=== PATIENT | female | born 1970 | race Caucasian/White ===

== ENCOUNTER 2017-05-23 16:55 | Inpatient (IN) | payer OTHER, SELFPAY ==
[2017-05-23] VITALS (7 sets, daily range): BP systolic 138–165; BP diastolic 67–95; PULSE 68–86; RESP 16–20; TEMP 36.8–36.9; O2SAT 96–100; BMI 32.5; BMI 29.7
--- NOTE | 2017-05-23 17:14 | RAD_ITS ---
STUDY: X-RAY CHEST REASON FOR EXAM: Female, 47 years old. Chest pain. TECHNIQUE: Single AP portable view of the chest. COMPARISON: None. FINDINGS: The lungs are clear and expanded. There is no demonstrated pleural abnormality. Normal size heart. Normal mediastinum and christopher. Normal visualized pulmonary arteries. Normal visualized aortic arch and descending thoracic aorta. Normal visualized thoracic spine. Normal visualized ribs, clavicles, and shoulders. There is no demonstrated abnormality of the visualized soft tissue structures of the upper abdomen. RAD/Chest 1 View (Portable) IMPRESSION: Normal x-ray examination of the chest. Electronically Signed: Shamar Perez DO at 17:38 EST Tel , Service support ,
--- NOTE | 2017-05-23 17:14 | EKG12_ITS ---
Test Reason : CHEST PAIN Blood Pressure : / mmHG Vent. Rate : 079 BPM Atrial Rate : 079 BPM P-R Int : 120 ms QRS Dur : 092 ms QT Int : 388 ms P-R-T Axes : 019 060 060 degrees QTc Int : 444 ms Normal sinus rhythm Normal ECG Confirmed by PAULINO SPRINGER, MARINO ([id number]), editor magazine RUDY FELIPE ([id number]) on 05/26/2017 2:12:52 PM Referred By: Confirmed By:MARINO BOB MD
--- NOTE | 2017-05-23 17:16 | ED.VISSUMM ---
- ER Visit Summary Date of Service: 05/23/17 Chief Complaint: Chest pain History of Present Illness: The patient is a [address] Nava. She reports approximate 11:00 at work today while she is undergoing light activity she had the onset of a left-sided chest pressure that lasted approximately 30 minutes. It was 10 out of 10 at worst. She reports her pain is 2 out of 10 currently. It was worsened by exertion relieved by rest. Made her short of breath and diaphoretic. She felt very lightheaded during this. She had no nausea or vomiting. She does report that she had a tightness in her throat then as well. She denies any chest pain or change in dyspnea exertion in the past month. Physical Examination: Vitals: Stable. Afebrile. General: Well-nourished and well-developed. Head: Normocephalic atraumatic. Neck: Supple, no lymphadenopathy. No JVD. Nontender. Cardiovascular: Regular rate and rhythm. No murmurs. Respiratory: No respiratory distress. Clear to auscultation bilaterally. Abdominal: Soft, nontender, nondistended, normal bowel sounds. No guarding, rebound, or peritoneal signs. Back: Nontender. Extremities: Nontender, no edema. Skin: Normal color, no rash. Neurologic: Alert and oriented ?3. Cranial nerves II through XII are intact. Normal strength and sensation. Psych: Normal affect. Test Results: EKG is sinus at 79 with no acute changes. Initial troponin 0.15. Chem-7 is marked for segment 152, chloride 116, BUN of 4. CBC is normal. Chest x-ray is normal. Emergency Department Course and Treatment: She was treated with aspirin. She is resting comfortably. Treatment Plan: Patient will be discussed with Dr. Regan he would like her placed on a heparin drip with bolus. She will be discussed with the hospitalist and admitted for further evaluation and treatment. Disposition: Needed in stable condition. Impression: 1. Chest pain. 2. Indeterminate troponin. 3. GRECIA score of 1. 4. Hypernatremia. 5. Critical care time 30 minutes. This note was generated with [employer] dictation software. It may contain incorrect words, spelling, and punctuation that were not noted in review of the chart prior to signing ED Disposition - Plan for ED Patient: Chief Complaint: Chest Pain Referrals: Emir Nava DO [Primary Care Provider] -
[2017-05-23] MEDS: 0.9% Normal Saline 1,000 ML 150 ML IV (17:31)
[2017-05-23] MEDS: Aspirin 81 MG TAB.CHEW 324 MG PO (17:32)
[2017-05-23 17:36] LABS: Absolute Lymphocyte Count 2.72 X10^3/ul (0.83-4.51); Absolute Neutrophil Count 6.2 X10^3/uL (2.0-7.7); Basophil# 0.05 X10^3/uL; Basophil% 0.5 % (0-1); Eosinophil# 0.05 X10^3/uL; Eosinophils% 0.5 % (0-5); Hematocrit 41.8 % (37-47); Lymphocyte # 2.72 X10^3/ul (4.0); Lymphocyte % 28.2 % (19-41); Mean Corp Hgb Conc 31.1 g/gl (32-36); Mean Corpuscular Hgb 24.6 pg (27.0-32.0); Mean Corpuscular Volume 79.2 fL (81-99); Mean Platelet Vol. 10.9 fl (6.2-12.0); Monocyte# 0.58 X10^3/uL; Neutrophil # 6.22 X10^3/uL (2.7-7.7); Neutrophil % 64.5 % (47-70); Platelet Count 328 K/mm3 (150-450); RBC Distribution Width SD 43.5 fl (35.1-43.9); Red Blood Count 5.28 M/mm3 (4.2-5.4); White Blood Count 9.7 K/mm3 (4.4-11.0)
[2017-05-23 17:38] LABS: POSITIVE COUNT NO; POSITIVE DIFFERENTIAL NO; POSITIVE MORPHOLOGY NO
[2017-05-23 18:05] LABS: BUN 4 mg/dL (7-18); BUN/Creat Ratio 6.8 RATIO (10-20); Calcium,Total 9.1 mg/dL (8.5-10.1); Creatinine, Serum 0.59 mg/dL (0.55-1.02); EST Glomerular Filtration Rate 116 mL/min (>60); Est Glom Filt Rate - Afr Amer 140 mL/min (>60); Estimated Creatinine Clearance 123.19 ml/min; Glucose 98 mg/dL (70-110); Potassium 3.9 mmol/L (3.5-5.1)
[2017-05-23] MEDS: HEPARIN/D5w 25,000 UNITS 25,000 UNITS/250 ML IV.SOLN. 14 UNITS IV (18:28)
[2017-05-23 18:39] LABS: International Normalized Ratio 1.1; Prothrombin Time (Protime)PT. 13.8 SECONDS (11.7-14.9)
[2017-05-23 18:40] LABS: Partial Thromboplast Time 30.9 Seconds (24.1-36.2)
[2017-05-23 19:04] LABS: Anion Gap 9 (5-15); Sodium Level 141 mmol/L (136-145)
[2017-05-23 19:08] LABS: Chloride 106 mmol/L (98-107)
--- NOTE | 2017-05-23 19:34 | ED.RN ---
PCU CHEST PAIN IMAMURA
[2017-05-23 21:18] LABS: Anion Gap 8 (5-15); BUN 4 mg/dL (7-18); BUN/Creat Ratio 7.8 RATIO (10-20); Calcium,Total 8.8 mg/dL (8.5-10.1); Chloride 108 mmol/L (98-107); Creatinine, Serum 0.51 mg/dL (0.55-1.02); EST Glomerular Filtration Rate 137 mL/min (>60); Est Glom Filt Rate - Afr Amer 165 mL/min (>60); Estimated Creatinine Clearance 142.51 ml/min; Glucose 96 mg/dL (70-110); Potassium 3.5 mmol/L (3.5-5.1); Sodium Level 142 mmol/L (136-145)
--- NOTE | 2017-05-23 21:28 | PCM.CONS.C ---
Problem List (1) NSTEMI (non-ST elevated myocardial infarction) Status: Acute (2) Chest pain Status: Acute Reason for Consult Date of Consultation: 05/23/17 History of Present Illness: The patient is a 47 year old white female with no past medical history other than a thyroid cyst who is referred for evaluation of chest pain and abnormal cardiac enzymes compatible with a non-ST segment elevation MT. The patient states that today, at work, she felt as the day went on she may have been having a panic attack . She had a variety of chest discomforts which felt like twinges as well as possibly pressure sensation. She seemed to think she was somewhat more short of breath and dyspneic. She noted discomfort in her neck area. She states she has been having discomfort in her left upper extremity for the last 2 weeks which she has attributed to musculoskeletal discomfort. She also noted that her heart rate appeared to be elevated at times. She had no nausea, emesis, but she may have had diaphoresis. She was evaluated by her employee nurse. She states originally she had a difficult time capturing her heart rate and blood pressure. After a period of time when she calmed down . She states that she was able to obtain a heart rate which she thought was elevated and a blood pressure which was reported as normal. She notes she was encouraged multiple times to present to the emergency department for evaluation. She chose not to do so. She did contact her primary physician office and then was recommended, based on the lateness of the day, to present to the emergency department to be evaluated with an ECG. In the emergency department she was evaluated. She was noted to have an indeterminate troponin I level. Her ECG demonstrated sinus rhythm with no acute ECG changes. She was treated with aspirin therapy. She was initially placed on IV anticoagulation therapy with IV heparin. She was placed in the PCU for further evaluation and care. She states overall she has felt better. She has had a repeat troponin I level which has increased. Her repeat ECG demonstrated continued sinus rhythm with no acute ECG changes. She states that she did travel recently to the [facility] for a hockey game. Otherwise she has had no prolonged periods of immobility. She also states she has been trying to eat healthier, exercise, and improve her lifestyle. She notes over the last year she has lost approximately 60 pounds. [] Past Medical History Allergies/Adverse Reactions: Allergies No Known Allergies Allergy (Verified 04/16/13 22:11) Home Medications: Ambulatory Orders Medication Instructions Recorded NK [NK] 05/23/17 Lives: Spouse/ Significant Other Smoking Status: Never smoker Alcohol: None Drugs: None Review of Systems - Review of Systems General: Denies: Fever, Night Sweats, Fatigue Cardiovascular: Reports: Chest Discomfort, Chest Discomfort at Rest, Chest Discomfort with Exertion, Shortness of Breath, Shortness of Breath at Rest, Shortness of Breath with Exertion, Palpitations. Denies: Orthopnea, PND, Peripheral Edema, Lightheadedness, Dizziness, Near Syncope, Syncope Respiratory: Reports: Shortness of Breath. Denies: Cough, Sputum Production, Hemoptysis Gastrointestinal: Denies: Hematemesis, Hematochezia, Melena Genitourinary: Denies: Dysuria, Hematuria Skin: Denies: Rash Subjectve: This is a 47-year-old healthy-appearing white female who appears resting comfortably at the moment in no acute distress. Objective: Vital Signs Temp Pulse Resp BP Pulse Ox 98.4 F 78 18 138/86 H 100 05/23/17 20:00 05/23/17 20:16 05/23/17 20:00 05/23/17 20:00 05/23/17 20:00 Oxygen Delivery Method Room Air Weight: 201 lb Body Mass Index (BMI) 29.7 General: Awake, Alert, Oriented x 3, Cooperative, No Acute Distress Neck: No JVD Lungs: Clear to auscultation Cardiovascular: Regular Rhythm, Normal S1, Normal S2 Vascular: No Carotid Bruits Abdomen: Bowel Sounds Present, Soft, Non Tender Extremities: No Cyanosis, No Clubbing, No edema Neurological: No Focal Motor or Sensory Deficit 05/23/17 20:32: Sodium 142, Potassium 3.5, Chloride 108 H, Carbon Dioxide 26.0, Anion Gap 8, BUN 4 L, Creatinine 0.51 L, Est GFR (MDRD) Af Amer 165, Est GFR (MDRD) Non-Af 137, BUN/Creatinine Ratio 7.8 L, Glucose 96, Calcium 8.8 05/23/17 20:32: Troponin I 0.21 H Rhythm: Sinus rhythm EKG: As noted above CXR: Preliminary evaluation: No acute cardiopulmonary disease process appreciated: Please see official report Assessment/Plan 1. Non-ST segment elevation MT At the present time the patient presents with symptoms and subsequent abnormal troponin I levels which have increased with no other etiology to explain them compatible with a non-ST segment elevation MT. She will continue to be monitored. She will have follow-up cardiac enzymes and ECGs. She will have a follow-up echocardiogram to assess her left ventricular wall motion and systolic function. She will need to be considered for further evaluation with diagnostic cardiac catheterization unless another etiology is found to explain her clinical course and objective findings. In the meantime she will be treated medically. This will include a combination of aspirin and antiplatelet agents, nitrates as needed, beta-blockers, lipid-lowering agents, and anticoagulant therapy. 2. Chest pain She does have chest pain. Her symptoms are mixed. Thus far the concerning finding is her symptoms and her troponin I levels and the possibility of underlying cardiovascular disease. However she will also need to be considered for other etiologies. She did recently travel there may be concerns of the possibility of thromboembolic disease such as DVT/PE. It is not unreasonable to obtain a d-dimer level. If this is abnormal then she can be screened for the possibility of pulmonary emboli which may result in her symptoms and abnormal laboratory studies with a chest CT scan. Otherwise, unless there is another etiology to explain her symptoms and findings, and she will need to be considered for further evaluation from a cardiovascular standpoint as noted above. Comment: The above was discussed and reviewed with patient and the [facility] staff and the [facility] emergency department staff. This note was generated with [employer] software. Every effort was made to ensure accuracy, however, computerized audio visual production specialist mistakes may persist.
--- NOTE | 2017-05-23 21:37 | CON.PCM_ITS ---
Problem List (1) NSTEMI (non-ST elevated myocardial infarction) Status: Acute (2) Chest pain Status: Acute Reason for Consult Date of Consultation: 05/23/17 History of Present Illness: The patient is a 47 year old white female with no past medical history other than a thyroid cyst who is referred for evaluation of chest pain and abnormal cardiac enzymes compatible with a non-ST segment elevation PR. The patient states that today, at work, she felt as the day went on she may have been having a panic attack . She had a variety of chest discomforts which felt like twinges as well as possibly pressure sensation. She seemed to think she was somewhat more short of breath and dyspneic. She noted discomfort in her neck area. She states she has been having discomfort in her left upper extremity for the last 2 weeks which she has attributed to musculoskeletal discomfort. She also noted that her heart rate appeared to be elevated at times. She had no nausea, emesis, but she may have had diaphoresis. She was evaluated by her employee nurse. She states originally she had a difficult time capturing her heart rate and blood pressure. After a period of time when she calmed down . She states that she was able to obtain a heart rate which she thought was elevated and a blood pressure which was reported as normal. She notes she was encouraged multiple times to present to the emergency department for evaluation. She chose not to do so. She did contact her primary physician office and then was recommended, based on the lateness of the day, to present to the emergency department to be evaluated with an ECG. In the emergency department she was evaluated. She was noted to have an indeterminate troponin I level. Her ECG demonstrated sinus rhythm with no acute ECG changes. She was treated with aspirin therapy. She was initially placed on IV anticoagulation therapy with IV heparin. She was placed in the PCU for further evaluation and care. She states overall she has felt better. She has had a repeat troponin I level which has increased. Her repeat ECG demonstrated continued sinus rhythm with no acute ECG changes. She states that she did travel recently to the [facility] for a hockey game. Otherwise she has had no prolonged periods of immobility. She also states she has been trying to eat healthier, exercise, and improve her lifestyle. She notes over the last year she has lost approximately 60 pounds. [] Past Medical History Allergies/Adverse Reactions: Allergies No Known Allergies Allergy (Verified 04/16/13 22:11) Home Medications: Ambulatory Orders Medication Instructions Recorded NK [NK] 05/23/17 Lives: Spouse/ Significant Other Smoking Status: Never smoker Alcohol: None Drugs: None Review of Systems - Review of Systems General: Denies: Fever, Night Sweats, Fatigue Cardiovascular: Reports: Chest Discomfort, Chest Discomfort at Rest, Chest Discomfort with Exertion, Shortness of Breath, Shortness of Breath at Rest, Shortness of Breath with Exertion, Palpitations. Denies: Orthopnea, PND, Peripheral Edema, Lightheadedness, Dizziness, Near Syncope, Syncope Respiratory: Reports: Shortness of Breath. Denies: Cough, Sputum Production, Hemoptysis Gastrointestinal: Denies: Hematemesis, Hematochezia, Melena Genitourinary: Denies: Dysuria, Hematuria Skin: Denies: Rash Subjectve: This is a 47-year-old healthy-appearing white female who appears resting comfortably at the moment in no acute distress. Objective: Vital Signs Temp Pulse Resp BP Pulse Ox 98.4 F 78 18 138/86 H 100 05/23/17 20:00 05/23/17 20:16 05/23/17 20:00 05/23/17 20:00 05/23/17 20:00 Oxygen Delivery Method Room Air Weight: 201 lb Body Mass Index (BMI) 29.7 General: Awake, Alert, Oriented x 3, Cooperative, No Acute Distress Neck: No JVD Lungs: Clear to auscultation Cardiovascular: Regular Rhythm, Normal S1, Normal S2 Vascular: No Carotid Bruits Abdomen: Bowel Sounds Present, Soft, Non Tender Extremities: No Cyanosis, No Clubbing, No edema Neurological: No Focal Motor or Sensory Deficit 05/23/17 20:32: Sodium 142, Potassium 3.5, Chloride 108 H, Carbon Dioxide 26.0, Anion Gap 8, BUN 4 L, Creatinine 0.51 L, Est GFR (MDRD) Af Amer 165, Est GFR ( MDRD) Non-Af 137, BUN/Creatinine Ratio 7.8 L, Glucose 96, Calcium 8.8 05/23/17 20:32: Troponin I 0.21 H Rhythm: Sinus rhythm EKG: As noted above CXR: Preliminary evaluation: No acute cardiopulmonary disease process appreciated: Please see official report Assessment/Plan 1. Non-ST segment elevation PR At the present time the patient presents with symptoms and subsequent abnormal troponin I levels which have increased with no other etiology to explain them compatible with a non-ST segment elevation PR. She will continue to be monitored. She will have follow-up cardiac enzymes and ECGs. She will have a follow-up echocardiogram to assess her left ventricular wall motion and systolic function. She will need to be considered for further evaluation with diagnostic cardiac catheterization unless another etiology is found to explain her clinical course and objective findings. In the meantime she will be treated medically. This will include a combination of aspirin and antiplatelet agents, nitrates as needed, beta-blockers, lipid- lowering agents, and anticoagulant therapy. 2. Chest pain She does have chest pain. Her symptoms are mixed. Thus far the concerning finding is her symptoms and her troponin I levels and the possibility of underlying cardiovascular disease. However she will also need to be considered for other etiologies. She did recently travel there may be concerns of the possibility of thromboembolic disease such as DVT/PE. It is not unreasonable to obtain a d-dimer level. If this is abnormal then she can be screened for the possibility of pulmonary emboli which may result in her symptoms and abnormal laboratory studies with a chest CT scan. Otherwise, unless there is another etiology to explain her symptoms and findings , and she will need to be considered for further evaluation from a cardiovascular standpoint as noted above. Comment: The above was discussed and reviewed with patient and the [facility] staff and the [facility] emergency department staff. This note was generated with [employer] software. Every effort was made to ensure accuracy, however, computerized conservation science officer mistakes may persist.
[2017-05-23 21:52] LABS: D-Dimer Quantitative (DVT/PE) < 0.27 FEU/ug/m (0.27-0.49)
--- NOTE | 2017-05-23 22:04 | PCM.HP.STD ---
Problem List (1) NSTEMI (non-ST elevated myocardial infarction) Status: Acute (2) Chest pain Status: Acute Qualifiers: Chest pain type: precordial pain Qualified Code(s): R07.2 - Precordial pain History of Present Illness Date of Admission: 05/23/17 Chief Complaint: Chest pain. Patient is a 47 years old female with no significant medical problems in the past, presented with chest pain. Chest pain is fairly typical for symptoms of angina with pressure like sensation at upper mid chest, diaphoresis, radiation to neck, dizziness, and shortness of breath. The pain was not exertional, but she states that she was under a lot of stress. Pain started around 11:00 AM, lasted for about 30 minutes, resolved spontaneously. Other than family history, she has no significant risk factors. She has been exercising regularly now, with no symptoms while doing her exercise. EKG was normal. Troponin was slightly elevated to 0.15. Past Medical History Allergies No Known Allergies Allergy (Verified 04/16/13 22:11) Home Medications: Ambulatory Orders Medication Instructions Recorded NK [NK] 05/23/17 Surgical History: no surgical history Lives: Spouse/ Significant Other Smoking Status: Never smoker Alcohol: None Drugs: None - *Family History Maternal History Items: Heart Disease - Her mother had coronary artery disease in her late 50's. Paternal History Items: Heart Disease - Her father had coronary artery disease in his 50's. Review of Systems Comment: ROS: In general: Patient has been in good health, denied of any constitutional symptoms, such as weight loss, or gain, fever, chills, or night sweats. Patient denied of any profound fatigue. HEENT: Unremarkable. Patient denied of any dizziness, chronic headache, blurred vision, double vision, dry mouth, or nasal congestion. CV/respiratory: See HPI. GI: Patient denied any abdominal pain, nausea, vomiting, diarrhea, constipation, melena, or hematochezia. : Patient denied any significant urinary symptoms. Neurology: Unremarkable. There is no history of seizure as an adult. Psychological: Unremarkable. ?. Endocrine: Unremarkable. Musculoskeletal: Unremarkable. VTE Information - Inpt Only VTE Present on Admission: No VTE Mechan Device Prophylaxis: None VTE Pharm Prophylaxis ordered?: Yes Patient Problems: Active and Suspected Problems NSTEMI (non-ST elevated myocardial infarction) (Acute) Chest pain (Acute) Objective: In general, patient is a well-nourished and developed adult. HEENT: Head is atraumatic, and normocephalic. Pupils are equal, round, and reactive to light and accommodations. Neck is supple. There is no lymphadenopathy, or thyromegaly. Oral mucosa is pink, and moist. There are no lesions. Heart: Auscultation is normal with regular rhythm and rate. There is no extra heart sounds, or murmurs. S1 and S2 are present. Point of maximal impulse is not displaced. Lungs: Lungs are clear to auscultation bilaterally. There is no wheezing, or crackles. Abdomen: Abdominal wall is non-tender, and non-distended. There is no palpable mass or organomegaly. Normoactive bowel sounds are present. Extremities: There is no cyanosis or clubbing. Peripheral pulses are palpable. There is no edema. Skin: There are no any skin discoloration or lesions. Neurological: CN II - XII are intact. Sensory and motor functions are grossly normal with no obvious deficit. Cerebellar functions are within normal range. Gait was not tested. - Physical Exam Vital Signs Temp Pulse Resp BP Pulse Ox 98.4 F 78 18 138/86 H 100 05/23/17 20:00 05/23/17 20:16 05/23/17 20:00 05/23/17 20:00 05/23/17 20:00 Oxygen Delivery Method Room Air Weight: 201 lb Body Mass Index (BMI) 29.7 Laboratory Tests Past 24 Hrs 05/23/17 05/23/17 20:32 20:32 Sodium 142 Potassium 3.5 Chloride 108 H Carbon Dioxide 26.0 Anion Gap 8 BUN 4 L Creatinine 0.51 L Estim Creat Clear Calc 142.51 Est GFR (MDRD) Af Amer 165 Est GFR (MDRD) Non-Af 137 BUN/Creatinine Ratio 7.8 L Glucose 96 Calcium 8.8 Troponin I 0.21 H Diagnostic Data Chest X-Ray 05/23/17 17:14 IMPRESSION: Normal x-ray examination of the chest. Electronically Signed: Shamar Perez DO at 17:38 EST Tel , Service support , Assessment/Plan Active and Suspected Problems NSTEMI (non-ST elevated myocardial infarction) (Acute) Chest pain (Acute) Patient is a 47 years old female with no significant medical problems in the past, presented with chest pain. Chest pain is fairly typical for symptoms of angina with pressure like sensation at upper mid chest, diaphoresis, radiation to neck, dizziness, and shortness of breath. The pain was not exertional, but she states that she was under a lot of stress. Pain started around 11:00 AM, lasted for about 30 minutes, resolved spontaneously. Other than family history, she has no significant risk factors. She has been exercising regularly now, with no symptoms while doing her exercise. EKG was normal. Troponin was slightly elevated to 0.15. #1 Elevated troponin, likely with NSTEMI. Continue to trend troponin. Cardiology consulted. Started on heparin drip. Aspirin given. #2 chest pain. See above. VTE prophylaxis: heparin GGT. GI prophylaxis: famotidine po. Patient is full code. Disposition: home in 2 to 3 days. Code Visit Inpatient E&M: [id number] Init Hosp L3
--- NOTE | 2017-05-23 22:14 | HP.PCM_ITS ---
Problem List (1) NSTEMI (non-ST elevated myocardial infarction) Status: Acute (2) Chest pain Status: Acute Qualifiers: Chest pain type: precordial pain Qualified Code(s): R07.2 - Precordial pain History of Present Illness Date of Admission: 05/23/17 Chief Complaint: Chest pain. Patient is a 47 years old female with no significant medical problems in the past, presented with chest pain. Chest pain is fairly typical for symptoms of angina with pressure like sensation at upper mid chest, diaphoresis , radiation to neck, dizziness, and shortness of breath. The pain was not exertional, but she states that she was under a lot of stress. Pain started around 11:00 AM, lasted for about 30 minutes, resolved spontaneously. Other than family history, she has no significant risk factors. She has been exercising regularly now, with no symptoms while doing her exercise. EKG was normal. Troponin was slightly elevated to 0.15. Past Medical History Allergies No Known Allergies Allergy (Verified 04/16/13 22:11) Home Medications: Ambulatory Orders Medication Instructions Recorded NK [NK] 05/23/17 Surgical History: no surgical history Lives: Spouse/ Significant Other Smoking Status: Never smoker Alcohol: None Drugs: None - *Family History Maternal History Items: Heart Disease - Her mother had coronary artery disease in her late 50's. Paternal History Items: Heart Disease - Her father had coronary artery disease in his 50' s. Review of Systems Comment: ROS: In general: Patient has been in good health, denied of any constitutional symptoms, such as weight loss, or gain, fever, chills, or night sweats. Patient denied of any profound fatigue. HEENT: Unremarkable. Patient denied of any dizziness, chronic headache, blurred vision, double vision, dry mouth, or nasal congestion. CV/respiratory: See HPI. GI: Patient denied any abdominal pain, nausea, vomiting, diarrhea, constipation, melena, or hematochezia. : Patient denied any significant urinary symptoms. Neurology: Unremarkable. There is no history of seizure as an adult. Psychological: Unremarkable. ?. Endocrine: Unremarkable. Musculoskeletal: Unremarkable. VTE Information - Inpt Only VTE Present on Admission: No VTE Mechan Device Prophylaxis: None VTE Pharm Prophylaxis ordered?: Yes Patient Problems: Active and Suspected Problems NSTEMI (non-ST elevated myocardial infarction) (Acute) Chest pain (Acute) Objective: In general, patient is a well-nourished and developed adult. HEENT: Head is atraumatic, and normocephalic. Pupils are equal, round, and reactive to light and accommodations. Neck is supple. There is no lymphadenopathy, or thyromegaly. Oral mucosa is pink, and moist. There are no lesions. Heart: Auscultation is normal with regular rhythm and rate. There is no extra heart sounds, or murmurs. S1 and S2 are present. Point of maximal impulse is not displaced. Lungs: Lungs are clear to auscultation bilaterally. There is no wheezing, or crackles. Abdomen: Abdominal wall is non-tender, and non-distended. There is no palpable mass or organomegaly. Normoactive bowel sounds are present. Extremities: There is no cyanosis or clubbing. Peripheral pulses are palpable. There is no edema. Skin: There are no any skin discoloration or lesions. Neurological: CN II - XII are intact. Sensory and motor functions are grossly normal with no obvious deficit. Cerebellar functions are within normal range. Gait was not tested. - Physical Exam Vital Signs Temp Pulse Resp BP Pulse Ox 98.4 F 78 18 138/86 H 100 05/23/17 20:00 05/23/17 20:16 05/23/17 20:00 05/23/17 20:00 05/23/17 20:00 Oxygen Delivery Method Room Air Weight: 201 lb Body Mass Index (BMI) 29.7 Laboratory Tests Past 24 Hrs 05/23/17 05/23/17 20:32 20:32 Sodium 142 Potassium 3.5 Chloride 108 H Carbon Dioxide 26.0 Anion Gap 8 BUN 4 L Creatinine 0.51 L Estim Creat Clear Calc 142.51 Est GFR (MDRD) Af Amer 165 Est GFR (MDRD) Non-Af 137 BUN/Creatinine Ratio 7.8 L Glucose 96 Calcium 8.8 Troponin I 0.21 H Diagnostic Data Chest X-Ray 05/23/17 17:14 IMPRESSION: Normal x-ray examination of the chest. Electronically Signed: Shamar Perez DO at 17:38 EST Tel , Service support , Assessment/Plan Active and Suspected Problems NSTEMI (non-ST elevated myocardial infarction) (Acute) Chest pain (Acute) Patient is a 47 years old female with no significant medical problems in the past, presented with chest pain. Chest pain is fairly typical for symptoms of angina with pressure like sensation at upper mid chest, diaphoresis , radiation to neck, dizziness, and shortness of breath. The pain was not exertional, but she states that she was under a lot of stress. Pain started around 11:00 AM, lasted for about 30 minutes, resolved spontaneously. Other than family history, she has no significant risk factors. She has been exercising regularly now, with no symptoms while doing her exercise. EKG was normal. Troponin was slightly elevated to 0.15. #1 Elevated troponin, likely with NSTEMI. Continue to trend troponin. Cardiology consulted. Started on heparin drip. Aspirin given. #2 chest pain. See above. VTE prophylaxis: heparin GGT. GI prophylaxis: famotidine po. Patient is full code. Disposition: home in 2 to 3 days. Code Visit Inpatient E&M: 45125 Init Hosp L3
[2017-05-23] MEDS: 0.45% Normal Saline 1,000 ML 100 ML IV (22:29)
[2017-05-23] MEDS: TICAGRELOR 90 MG TABLET 180 MG PO (22:31)
[2017-05-23] MEDS: Metoprolol Tartrate 25 MG Tablet PO (22:32)
[2017-05-23] MEDS: Famotidine 20 MG Tablet PO (22:32)
[2017-05-24] VITALS (16 sets, daily range): BP systolic 119–134; BP diastolic 68–80; PULSE 56–73; RESP 15–18; TEMP 36.7–36.9; O2SAT 95–100
[2017-05-24 01:44] LABS: Partial Thromboplast Time 171.7 Seconds (24.1-36.2)
--- NOTE | 2017-05-24 05:55 | EKG12_ITS ---
Test Reason : Blood Pressure : / mmHG Vent. Rate : 069 BPM Atrial Rate : 069 BPM P-R Int : 122 ms QRS Dur : 094 ms QT Int : 396 ms P-R-T Axes : 006 046 050 degrees QTc Int : 424 ms Normal sinus rhythm Normal ECG Confirmed by PAULINO SPRINGER, MARINO ([id number]), editor managing newspaper RUDY FELIPE ([id number]) on 05/26/2017 2:13:16 PM Referred By: Confirmed By:MARINO BOB MD
--- NOTE | 2017-05-24 05:55 | ECHOD_ITS ---
Reason For Study: Chest Pain Procedure This was a 2D Doppler, Color Flow transthoracic echocardiogram. The exam was of fair technical quality due to body habitus. Exam performed portable in patient room. Left Ventricle Normal LV size. Left ventricular systolic function is normal. The estimated ejection fraction is 65 %. Transmitral doppler flow suggestive of impaired relaxation of left ventricle. No regional wall motion abnormalities noted. Right Ventricle Normal RV size. Normal systolic function. Atria Normal left atrium. Normal right atrium. No doppler evidence for ASD. Mitral Valve There is no mitral annular calcification. Normal mitral valve. Trivial mitral valve insufficiency. Tricuspid Valve Normal tricuspid valve. Trivial tricuspid valve insufficiency. Right ventricular systolic pressure estimated to be 24 mmHg. Aortic Valve Trisinus/trileaflet aortic valve. Mild focal aortic valve thickening. Pulmonic Valve Normal pulmonic valve. Great Vessels Normal sized aortic root. Pericardium/Pleural No pericardial effusion. MMode/2D Measurements & Calculations LVIDd: 4.5 cm IVSd: 0.98 cm Ao root diam: 2.9 cm LVIDs: 2.7 cm LVPWd: 1.2 cm LA dimension: 3.2 cm FS: 39.6 % LAV(MOD-bp): 50.7 ml LA A4 area: 16.7 cm2 RA A4 area: 15.0 cm2 LAV(MOD-bp) Indexed: 24.5 ml/m2 LAV(MOD-sp2): 63.0 ml LAV(MOD-sp4): 42.5 ml Time Measurements MV dec time: 0.20 sec Doppler Measurements & Calculations MV E max chris: 66.8 cm/sec MV V2 max: 85.4 cm/sec MV P1/2t max chris: 84.8 cm/sec MV A max chris: 75.5 cm/sec MV max P.9 mmHg MV P1/2t: 58.3 msec MV E/A: 0.89 MV V2 mean: 47.1 cm/sec MV dec slope: 426.0 cm/sec2 MV mean P.0 mmHg MVA(P1/2t): 3.8 cm2 MV V2 VTI: 24.5 cm Ao V2 max: 148.3 cm/sec LV V1 max: 111.0 cm/sec PA V2 max: 93.4 cm/sec Ao max P.8 mmHg LV V1 max P.9 mmHg Ao V2 mean: 92.5 cm/sec LV V1 mean P.3 mmHg Ao mean P.9 mmHg LV V1 mean: 70.1 cm/sec Ao V2 VTI: 27.0 cm LV V1 VTI: 21.7 cm TR max chris: 230.2 cm/sec TR max P.2 mmHg Interpretation Summary Left ventricular systolic function is normal. The estimated ejection fraction is 65 %. Trivial mitral valve insufficiency. Trivial tricuspid valve insufficiency. Mild focal aortic valve thickening. Right ventricular systolic pressure estimated to be 24 mmHg. Transmitral doppler flow suggestive of impaired relaxation of left ventricle Ordering Physician: Hira Regan Referring Physician: Emir Nava Performed By: Maxim Grider RCS
[2017-05-24 06:52] LABS: Hematocrit 37.3 % (37-47); Hemoglobin 11.5 g/dl (12.0-15.0); Mean Corp Hgb Conc 30.8 g/gl (32-36); Mean Corpuscular Hgb 24.4 pg (27.0-32.0); Mean Corpuscular Volume 79.2 fL (81-99); Mean Platelet Vol. 10.6 fl (6.2-12.0); Platelet Count 284 K/mm3 (150-450); RBC Distribution Width SD 43.5 fl (35.1-43.9); Red Blood Count 4.71 M/mm3 (4.2-5.4); White Blood Count 6.1 K/mm3 (4.4-11.0)
[2017-05-24 06:53] LABS: International Normalized Ratio 1.2; Prothrombin Time (Protime)PT. 14.6 SECONDS (11.7-14.9)
[2017-05-24 06:54] LABS: Partial Thromboplast Time 43.9 Seconds (24.1-36.2)
[2017-05-24 06:56] LABS: Scan Indicated on CBC? Y/N NO
[2017-05-24 07:17] LABS: Anion Gap 10 (5-15); BUN 4 mg/dL (7-18); BUN/Creat Ratio 9.8 RATIO (10-20); Calcium,Total 8.6 mg/dL (8.5-10.1); Chloride 107 mmol/L (98-107); Cholesterol 151 mg/dL (200); Creatinine, Serum 0.41 mg/dL (0.55-1.02); EST Glomerular Filtration Rate 178 mL/min (>60); Est Glom Filt Rate - Afr Amer 215 mL/min (>60); Estimated Creatinine Clearance 177.27 ml/min; Glucose 84 mg/dL (70-110); High Density Lipoprotein 53 mg/dL; Potassium 3.4 mmol/L (3.5-5.1); Sodium Level 143 mmol/L (136-145); Triglycerides 80 mg/dL; Very Low Density Lipoprotein 16 mg/dL (5-40)
[2017-05-24] MEDS: 0.45% Normal Saline 1,000 ML 100 ML IV ×2 (08:58→16:30)
[2017-05-24] MEDS: Metoprolol Tartrate 25 MG Tablet PO (09:00)
[2017-05-24] MEDS: Famotidine 20 MG Tablet PO ×2 (09:00→21:31)
[2017-05-24] MEDS: Aspirin E.C. 81 MG Tablet PO (09:00)
[2017-05-24 10:08] LABS: Partial Thromboplast Time 50.6 Seconds (24.1-36.2)
--- NOTE | 2017-05-24 12:08 | PCM.PN.CARD ---
Subjectve: The patient states she had transient chest pain earlier this morning. She points to her upper sternal area. She stated it lasted for approximately 1 minute and then was gone. She states the best she can describe it is as a discomfort. She complained of no other associated symptoms. Objective: Vital Signs Temp Pulse Resp BP Pulse Ox 98.5 F 68 18 134/80 H 97 05/24/17 08:00 05/24/17 11:15 05/24/17 08:00 05/24/17 09:00 05/24/17 08:00 Oxygen Delivery Method Room Air Weight: 201 lb Body Mass Index (BMI) 29.7 Intake and Output for Last 24 Hours 05/22/17 05/23/17 05/24/17 23:59 23:59 23:59 Intake Total 263.9 / 263.9 1185.7 / 1185.7 Output Total 700 / 700 Balance 263.9 / 263.9 485.7 / 485.7 General: Awake, Alert, Oriented x 3, Cooperative, No Acute Distress Neck: No JVD Lungs: Clear to auscultation Cardiovascular: Regular Rhythm, Normal S1, Normal S2 Vascular: No Carotid Bruits Abdomen: Bowel Sounds Present, Soft, Non Tender Extremities: No Cyanosis, No Clubbing, No edema Neurological: No Focal Motor or Sensory Deficit 05/23/17 20:32: Sodium 142, Potassium 3.5, Chloride 108 H, Carbon Dioxide 26.0, Anion Gap 8, BUN 4 L, Creatinine 0.51 L, Est GFR (MDRD) Af Amer 165, Est GFR (MDRD) Non-Af 137, BUN/Creatinine Ratio 7.8 L, Glucose 96, Calcium 8.8 05/23/17 20:32: Troponin I 0.21 H 05/24/17 01:10: Troponin I 0.16 H 05/24/17 01:10: APTT 171.7 H* 05/24/17 05:36: WBC 6.1, RBC 4.71, Hgb 11.5 L, Hct 37.3, MCV 79.2 L, MCH 24.4 L, MCHC 30.8 L, RDW 15.0 H, RDW Differential 43.5, Plt Count 284, MPV 10.6 05/24/17 05:36: Sodium 143, Potassium 3.4 L, Chloride 107, Carbon Dioxide 26.0, Anion Gap 10, BUN 4 L, Creatinine 0.41 L, Est GFR (MDRD) Af Amer 215, Est GFR (MDRD) Non-Af 178, BUN/Creatinine Ratio 9.8 L, Glucose 84, Calcium 8.6, Troponin I 0.13 H, Triglycerides 80, Cholesterol 151, LDL Cholesterol 82, VLDL Cholesterol 16, HDL Cholesterol 53 05/24/17 05:36: PT 14.6, INR 1.2, APTT 43.9 H 05/24/17 09:19: APTT 50.6 H Rhythm: Sinus rhythm EKG: Sinus rhythm; no acute ECG changes ECHO: Pending Assessment/Plan 1. Non-ST segment elevation MT At the present time the patient presents with symptoms and subsequent abnormal troponin I levels which have increased with no other etiology to explain them compatible with a non-ST segment elevation MT. She did undergo evaluation with a d-dimer level. This was negative. Thus it appears less likely she has had thromboembolic disease to explain her symptoms and findings. She will continue to be monitored. She will have follow-up cardiac enzymes and ECGs. She will have a follow-up echocardiogram to assess her left ventricular wall motion and systolic function. She will need to be considered for further evaluation with diagnostic cardiac catheterization unless another etiology is found to explain her clinical course and objective findings. In the meantime she will be treated medically. This will include a combination of aspirin and antiplatelet agents, nitrates as needed, beta-blockers, lipid-lowering agents, and anticoagulant therapy. 2. Chest pain She does have chest pain. Her symptoms are mixed. Thus far the concerning finding is her symptoms and her troponin I levels and the possibility of underlying cardiovascular disease. However she will also need to be considered for other etiologies. Again, she underwent evaluation with a d-dimer level for the possibility of thromboembolic disease based on her recent travels. This appeared to be negative. There is also concern, if she does not have underlying classic atherosclerotic coronary artery disease, and there is no other explanation for her symptoms and objective findings, depending upon her future evaluation with respect her coronary anatomy and her left ventricular anatomy, whether she could have experienced atrial stress-induced cardiomyopathy. Comment: The above was discussed and reviewed with patient and the [facility] staff and the [facility] emergency department staff. This note was generated with [employer] software. Every effort was made to ensure accuracy, however, computerized assistant unit forester mistakes may persist.
--- NOTE | 2017-05-24 12:28 | PN_ITS ---
Patient Problems: Active and Suspected Problems NSTEMI (non-ST elevated myocardial infarction) (Acute) Chest pain (Acute) Subjective: Patient seen and examined. Denies chest pain currently. Denies dizziness, palpitations, shortness of breath. Denies history of chest pain or similar symptoms. She denies other complaints at this time. - Physical Exam General: Alert, Oriented x3, Cooperative, No apparent distress HEENT: Atraumatic Neck: Supple, No JVD, Negative Carotid Bruits Lungs: Clear to auscultation, Normal air movement Cardiovascular: Regular rate, Regular Rhythm, Normal S1, Normal S2, No murmurs Abdomen: Bowel Sounds Present, Soft, Non Tender Extremities: No clubbing, No cyanosis, No edema, Capillary Refill Less than 3 Seconds Skin: No rashes, No breakdown Musculoskeletal: No Tenderness to Palpation of Joints or Extremities Neurological: Cranial nerves II-XII grossly intact, Neuro grossly intact Psych/Mental Status: Normal Affect, Appropriate Vital Signs Temp Pulse Resp BP Pulse Ox 98.5 F 68 18 134/80 H 97 05/24/17 08:00 05/24/17 11:15 05/24/17 08:00 05/24/17 09:00 05/24/17 08:00 Oxygen Delivery Method Room Air Weight: 91.172 kg Body Mass Index (BMI) 29.7 Intake and Output for Last 24 Hours 05/22/17 05/23/17 05/24/17 23:59 23:59 23:59 Intake Total 263.9 / 263.9 1185.7 / 1185.7 Output Total 700 / 700 Balance 263.9 / 263.9 485.7 / 485.7 Laboratory Tests Past 24 Hrs 05/23/17 05/23/17 05/24/17 20:32 20:32 01:10 WBC RBC Hgb Hct MCV MCH MCHC RDW RDW Differential Plt Count MPV PT INR APTT Sodium 142 Potassium 3.5 Chloride 108 H Carbon Dioxide 26.0 Anion Gap 8 BUN 4 L Creatinine 0.51 L Estim Creat Clear Calc 142.51 Est GFR (MDRD) Af Amer 165 Est GFR (MDRD) Non-Af 137 BUN/Creatinine Ratio 7.8 L Glucose 96 Calcium 8.8 Troponin I 0.21 H 0.16 H Triglycerides Cholesterol LDL Cholesterol VLDL Cholesterol HDL Cholesterol 05/24/17 05/24/17 05/24/17 01:10 05:36 05:36 WBC 6.1 RBC 4.71 Hgb 11.5 L Hct 37.3 MCV 79.2 L MCH 24.4 L MCHC 30.8 L RDW 15.0 H RDW Differential 43.5 Plt Count 284 MPV 10.6 PT INR APTT 171.7 H* Sodium 143 Potassium 3.4 L Chloride 107 Carbon Dioxide 26.0 Anion Gap 10 BUN 4 L Creatinine 0.41 L Estim Creat Clear Calc 177.27 Est GFR (MDRD) Af Amer 215 Est GFR (MDRD) Non-Af 178 BUN/Creatinine Ratio 9.8 L Glucose 84 Calcium 8.6 Troponin I 0.13 H Triglycerides 80 Cholesterol 151 LDL Cholesterol 82 VLDL Cholesterol 16 HDL Cholesterol 53 05/24/17 05/24/17 05:36 09:19 WBC RBC Hgb Hct MCV MCH MCHC RDW RDW Differential Plt Count MPV PT 14.6 INR 1.2 APTT 43.9 H 50.6 H Sodium Potassium Chloride Carbon Dioxide Anion Gap BUN Creatinine Estim Creat Clear Calc Est GFR (MDRD) Af Amer Est GFR (MDRD) Non-Af BUN/Creatinine Ratio Glucose Calcium Troponin I Triglycerides Cholesterol LDL Cholesterol VLDL Cholesterol HDL Cholesterol Assessment/Plan Active and Suspected Problems NSTEMI (non-ST elevated myocardial infarction) (Acute) Chest pain (Acute) Patient is a 47-year-old female admitted 05/23/2017 due to chest pain. She has no other past medical history. 1. Chest pain-EKG without ST-T changes. Troponin elevated. Cardiology consulted. Patient denies further chest pain. No previous cardiac history or stress test/cardiac catheterization. Continue aspirin, statin, Brilinta, beta- leann. D-dimer normal. Chest x-ray unremarkable. Initial blood pressure on admission elevated which has since normalized. Echocardiogram pending. Possible cardiac catheterization on Friday. Continue as needed nitrate. Monitor telemetry. Repeat EKG with recurrence of chest pain. 2. Non-ST elevation RI-troponin 0.15, 0.21, 0.16, 0.13. Plan as noted above. 3. Hypokalemia, mild-replace orally. Monitor BMP. DVT prophylaxis-heparin gtt. This patient was seen by [facility] under the supervision of Dr. Almonte.
--- NOTE | 2017-05-24 12:41 | CASEMGMT ---
Face to Face with patient for initial transition planning/care coordination assessment. RN CM introduced self and role at [facility], pt voices understanding and consents to assessment at this time. Care providers, pharmacy, and demographics verified. See attached link. Advised pt to ask for CM if questions/concerns/needs arise, voices understanding. PLAN: Home with family.
[2017-05-24] MEDS: TICAGRELOR 90 MG TABLET PO ×2 (15:03→21:31)
[2017-05-24] MEDS: Metoprolol Tartrate 50 MG Tablet PO ×2 (15:03→21:33)
[2017-05-24] MEDS: HEPARIN/D5w 25,000 UNITS 25,000 UNITS/250 ML IV.SOLN. 12 UNITS IV (15:04)
--- NOTE | 2017-05-24 16:11 | EKG12_ITS ---
Test Reason : AM EKG Blood Pressure : / mmHG Vent. Rate : 061 BPM Atrial Rate : 061 BPM P-R Int : 156 ms QRS Dur : 094 ms QT Int : 448 ms P-R-T Axes : 035 057 060 degrees QTc Int : 450 ms Normal sinus rhythm Normal ECG When compared with ECG of 23-MAY-2017 17:04, MANUAL COMPARISON REQUIRED, DATA IS UNCONFIRMED Confirmed by JANES HOANG ([id number]), department editor RUDY FELIPE ([id number]) on 05/29/2017 1:53:01 PM Referred By: Confirmed By:JANES HOANG
[2017-05-24 17:17] LABS: Partial Thromboplast Time 65.7 Seconds (24.1-36.2)
--- NOTE | 2017-05-24 18:36 | NURSING ---
REVIEWED AND AGREED W/ Micky RAMOS'S CHARTING.
[2017-05-24] MEDS: Acetaminophen 325 MG Tablet 650 MG PO (19:34)
[2017-05-24] MEDS: Atorvastatin Calcium 80 MG Tablet PO (21:31)
[2017-05-24] MEDS: Zolpidem Tartrate 5 MG Tablet PO (21:32)
[2017-05-24 23:02] LABS: Partial Thromboplast Time 66.1 Seconds (24.1-36.2)
[2017-05-25] VITALS (21 sets, daily range): BP systolic 121–153; BP diastolic 63–80; PULSE 53–74; RESP 14–18; TEMP 36.6–37.1; O2SAT 95–100
[2017-05-25] MEDS: 0.45% Normal Saline 1,000 ML 100 ML IV ×2 (04:13→12:22)
--- NOTE | 2017-05-25 05:55 | EKG12_ITS ---
Test Reason : CP Blood Pressure : / mmHG Vent. Rate : 060 BPM Atrial Rate : 060 BPM P-R Int : 138 ms QRS Dur : 088 ms QT Int : 434 ms P-R-T Axes : 019 046 052 degrees QTc Int : 434 ms Normal sinus rhythm Normal ECG When compared with ECG of 24-MAY-2017 05:28, MANUAL COMPARISON REQUIRED, DATA IS UNCONFIRMED Confirmed by JANES HOANG ([id number]), editor farm journal RUDY FELPIE ([id number]) on 05/29/2017 1:55:26 PM Referred By: FABBY Confirmed By:JANES HOANG
[2017-05-25 06:30] LABS: Hematocrit 36.2 % (37-47); Hemoglobin 11.5 g/dl (12.0-15.0); Mean Corp Hgb Conc 31.8 g/gl (32-36); Mean Corpuscular Volume 78.7 fL (81-99); Mean Platelet Vol. 11.2 fl (6.2-12.0); Platelet Count 267 K/mm3 (150-450); RBC Distribution Width SD 42.3 fl (35.1-43.9); Scan Indicated on CBC? Y/N NO; White Blood Count 5.8 K/mm3 (4.4-11.0)
[2017-05-25 06:50] LABS: Partial Thromboplast Time 82.2 Seconds (24.1-36.2)
[2017-05-25 07:41] LABS: Anion Gap 11 (5-15); BUN 5 mg/dL (7-18); BUN/Creat Ratio 11.8 RATIO (10-20); Calcium,Total 8.6 mg/dL (8.5-10.1); Chloride 108 mmol/L (98-107); Creatinine, Serum 0.42 mg/dL (0.55-1.02); EST Glomerular Filtration Rate 171 mL/min (>60); Est Glom Filt Rate - Afr Amer 207 mL/min (>60); Estimated Creatinine Clearance 173.05 ml/min; Glucose 92 mg/dL (70-110); Potassium 3.8 mmol/L (3.5-5.1); Sodium Level 140 mmol/L (136-145)
[2017-05-25] MEDS: Famotidine 20 MG Tablet PO ×2 (08:58→23:01)
[2017-05-25] MEDS: Aspirin E.C. 81 MG Tablet PO (08:58)
[2017-05-25] MEDS: TICAGRELOR 90 MG TABLET PO (08:58)
[2017-05-25] MEDS: Metoprolol Tartrate 50 MG Tablet PO (08:58)
[2017-05-25] MEDS: HEPARIN/D5w 25,000 UNITS 25,000 UNITS/250 ML IV.SOLN. 12 UNITS IV (10:43)
--- NOTE | 2017-05-25 12:42 | PCM.PN.CARD ---
Subjectve: The patient is awake and alert. She has complained of intermittent waxing and waning chest discomfort. She states she did receive additional therapy with nitrates which did help. At the moment she appears to be resting comfortably. Objective: Vital Signs Temp Pulse Resp BP Pulse Ox 98.6 F 62 18 140/76 H 98 05/25/17 12:27 05/25/17 12:27 05/25/17 12:27 05/25/17 12:27 05/25/17 12:27 Oxygen Delivery Method Room Air Weight: 201 lb Body Mass Index (BMI) 29.7 Intake and Output for Last 24 Hours 05/23/17 05/24/17 05/25/17 23:59 23:59 23:59 Intake Total 263.9 / 263.9 2325.7 / 2325.7 3154 / 3154 Output Total 700 / 700 Balance 263.9 / 263.9 1625.7 / 1625.7 3154 / 3154 General: Awake, Alert, Oriented x 3, Cooperative, No Acute Distress Neck: No JVD Lungs: Clear to auscultation Cardiovascular: Regular Rhythm, Normal S1, Normal S2 Vascular: No Carotid Bruits, Normal Femoral Pulses, Normal Radial Pulses Abdomen: Bowel Sounds Present, Soft, Non Tender Extremities: No Cyanosis, No Clubbing, No edema Neurological: No Focal Motor or Sensory Deficit 05/24/17 16:40: APTT 65.7 H 05/24/17 22:37: APTT 66.1 H 05/25/17 05:45: Sodium 140, Potassium 3.8, Chloride 108 H, Carbon Dioxide 21.0, Anion Gap 11, BUN 5 L, Creatinine 0.42 L, Est GFR (MDRD) Af Amer 207, Est GFR (MDRD) Non-Af 171, BUN/Creatinine Ratio 11.8, Glucose 92, Calcium 8.6 05/25/17 05:45: WBC 5.8, RBC 4.60, Hgb 11.5 L, Hct 36.2 L, MCV 78.7 L, MCH 25.0 L, MCHC 31.8 L, RDW 15.0 H, RDW Differential 42.3, Plt Count 267, MPV 11.2 05/25/17 05:45: APTT 82.2 H Rhythm: Sinus rhythm EKG: Sinus rhythm; no acute ECG changes ECHO: Ventricle normal with an LVEF of 65%; trivial MR/TR; mild focal aortic valve thickening; estimated RV systolic pressure 24 mmHg; decreased diastolic compliance Assessment/Plan 1. Non-ST segment elevation TN At the present time the patient presents with symptoms and subsequent abnormal troponin I levels which have increased with no other etiology to explain them compatible with a non-ST segment elevation TN. She did undergo evaluation with a d-dimer level. This was negative. Thus it appears less likely she has had thromboembolic disease to explain her symptoms and findings. She will continue to be monitored. Her cardiac enzymes have decreased. Follow-up echocardiogram was demonstrated no acute changes. Upon her symptoms, enzyme changes, etc. it has been recommended she undergo evaluation with diagnostic cardiac catheterization. The procedure and risks were discussed with her. She was agreeable to this approach. In the meantime she will be treated medically. This will include a combination of aspirin and antiplatelet agents, nitrates as needed, beta-blockers, lipid-lowering agents, and anticoagulant therapy. 2. Chest pain She does have chest pain. Her symptoms are mixed. Thus far the concerning finding is her symptoms and her troponin I levels and the possibility of underlying cardiovascular disease. However she will also need to be considered for other etiologies. Again, she underwent evaluation with a d-dimer level for the possibility of thromboembolic disease based on her recent travels. This appeared to be negative. There is also concern, if she does not have underlying classic atherosclerotic coronary artery disease, and there is no other explanation for her symptoms and objective findings, depending upon her future evaluation with respect her coronary anatomy and her left ventricular anatomy, whether she could have experienced atrial stress-induced cardiomyopathy. Based upon her echocardiographic images there does not appear to be the classic evidence at this time compatible with a stress-induced cardiomyopathy. Comment: The above was discussed and reviewed with patient and the [facility] staff. This note was generated with [employer] software. Every effort was made to ensure accuracy, however, computerized wireworker supervisor mistakes may persist.
--- NOTE | 2017-05-25 12:46 | PN.CARD_ITS ---
Subjectve: The patient is awake and alert. She has complained of intermittent waxing and waning chest discomfort. She states she did receive additional therapy with nitrates which did help. At the moment she appears to be resting comfortably. Objective: Vital Signs Temp Pulse Resp BP Pulse Ox 98.6 F 62 18 140/76 H 98 05/25/17 12:27 05/25/17 12:27 05/25/17 12:27 05/25/17 12:27 05/25/17 12:27 Oxygen Delivery Method Room Air Weight: 201 lb Body Mass Index (BMI) 29.7 Intake and Output for Last 24 Hours 05/23/17 05/24/17 05/25/17 23:59 23:59 23:59 Intake Total 263.9 / 263.9 2325.7 / 2325.7 3154 / 3154 Output Total 700 / 700 Balance 263.9 / 263.9 1625.7 / 1625.7 3154 / 3154 General: Awake, Alert, Oriented x 3, Cooperative, No Acute Distress Neck: No JVD Lungs: Clear to auscultation Cardiovascular: Regular Rhythm, Normal S1, Normal S2 Vascular: No Carotid Bruits, Normal Femoral Pulses, Normal Radial Pulses Abdomen: Bowel Sounds Present, Soft, Non Tender Extremities: No Cyanosis, No Clubbing, No edema Neurological: No Focal Motor or Sensory Deficit 05/24/17 16:40: APTT 65.7 H 05/24/17 22:37: APTT 66.1 H 05/25/17 05:45: Sodium 140, Potassium 3.8, Chloride 108 H, Carbon Dioxide 21.0, Anion Gap 11, BUN 5 L, Creatinine 0.42 L, Est GFR (MDRD) Af Amer 207, Est GFR ( MDRD) Non-Af 171, BUN/Creatinine Ratio 11.8, Glucose 92, Calcium 8.6 05/25/17 05:45: WBC 5.8, RBC 4.60, Hgb 11.5 L, Hct 36.2 L, MCV 78.7 L, MCH 25.0 L, MCHC 31.8 L, RDW 15.0 H, RDW Differential 42.3, Plt Count 267, MPV 11.2 05/25/17 05:45: APTT 82.2 H Rhythm: Sinus rhythm EKG: Sinus rhythm; no acute ECG changes ECHO: Ventricle normal with an LVEF of 65%; trivial MR/TR; mild focal aortic valve thickening; estimated RV systolic pressure 24 mmHg; decreased diastolic compliance Assessment/Plan 1. Non-ST segment elevation [place] At the present time the patient presents with symptoms and subsequent abnormal troponin I levels which have increased with no other etiology to explain them compatible with a non-ST segment elevation NJ. She did undergo evaluation with a d-dimer level. This was negative. Thus it appears less likely she has had thromboembolic disease to explain her symptoms and findings. She will continue to be monitored. Her cardiac enzymes have decreased. Follow- up echocardiogram was demonstrated no acute changes. Upon her symptoms, enzyme changes, etc. it has been recommended she undergo evaluation with diagnostic cardiac catheterization. The procedure and risks were discussed with her. She was agreeable to this approach. In the meantime she will be treated medically. This will include a combination of aspirin and antiplatelet agents, nitrates as needed, beta-blockers, lipid- lowering agents, and anticoagulant therapy. 2. Chest pain She does have chest pain. Her symptoms are mixed. Thus far the concerning finding is her symptoms and her troponin I levels and the possibility of underlying cardiovascular disease. However she will also need to be considered for other etiologies. Again, she underwent evaluation with a d-dimer level for the possibility of thromboembolic disease based on her recent travels. This appeared to be negative. There is also concern, if she does not have underlying classic atherosclerotic coronary artery disease, and there is no other explanation for her symptoms and objective findings, depending upon her future evaluation with respect her coronary anatomy and her left ventricular anatomy, whether she could have experienced atrial stress-induced cardiomyopathy. Based upon her echocardiographic images there does not appear to be the classic evidence at this time compatible with a stress-induced cardiomyopathy. Comment: The above was discussed and reviewed with patient and the [facility] staff. This note was generated with [employer] software. Every effort was made to ensure accuracy, however, computerized merchandise manager mistakes may persist.
--- NOTE | 2017-05-25 14:04 | PN_ITS ---
Patient Problems: Active and Suspected Problems NSTEMI (non-ST elevated myocardial infarction) (Acute) Chest pain (Acute) Subjective: Patient seen and examined. Ambulating in room. Denies further chest pain. Dr. Regan has discussed with patient possibly undergoing cardiac catheterization this afternoon. She denies questions or concerns. Denies other complaints at this time. - Physical Exam General: Alert, Oriented x3, Cooperative, No apparent distress HEENT: Atraumatic, PERRLA, EOMI, Normocephalic Neck: Supple, No JVD, Negative Carotid Bruits Lungs: Clear to auscultation, Normal air movement Cardiovascular: Regular rate, Regular Rhythm, Normal S1, Normal S2, No murmurs Abdomen: Bowel Sounds Present, Soft, Non Tender, Non-Distended Extremities: No clubbing, No cyanosis, No edema, Capillary Refill Less than 3 Seconds Skin: No rashes, No breakdown Musculoskeletal: No Tenderness to Palpation of Joints or Extremities Neurological: Cranial nerves II-XII grossly intact, Neuro grossly intact Psych/Mental Status: Normal Affect, Appropriate Vital Signs Temp Pulse Resp BP Pulse Ox 98.6 F 62 18 140/76 H 98 05/25/17 12:27 05/25/17 12:27 05/25/17 12:27 05/25/17 12:27 05/25/17 12:27 Oxygen Delivery Method Room Air Weight: 91.172 kg Body Mass Index (BMI) 29.7 Intake and Output for Last 24 Hours 05/23/17 05/24/17 05/25/17 23:59 23:59 23:59 Intake Total 263.9 / 263.9 2325.7 / 2325.7 3154 / 3154 Output Total 700 / 700 Balance 263.9 / 263.9 1625.7 / 1625.7 3154 / 3154 Laboratory Tests Past 24 Hrs 05/24/17 05/24/17 05/24/17 05:36 16:40 22:37 WBC RBC Hgb Hct MCV MCH MCHC RDW RDW Differential Plt Count MPV APTT 65.7 H 66.1 H Sodium Potassium Chloride Carbon Dioxide Anion Gap BUN Creatinine Estim Creat Clear Calc Est GFR (MDRD) Af Amer Est GFR (MDRD) Non-Af BUN/Creatinine Ratio Glucose Calcium TSH 1.10 05/25/17 05/25/17 05/25/17 05:45 05:45 05:45 WBC 5.8 RBC 4.60 Hgb 11.5 L Hct 36.2 L MCV 78.7 L MCH 25.0 L MCHC 31.8 L RDW 15.0 H RDW Differential 42.3 Plt Count 267 MPV 11.2 APTT 82.2 H Sodium 140 Potassium 3.8 Chloride 108 H Carbon Dioxide 21.0 Anion Gap 11 BUN 5 L Creatinine 0.42 L Estim Creat Clear Calc 173.05 Est GFR (MDRD) Af Amer 207 Est GFR (MDRD) Non-Af 171 BUN/Creatinine Ratio 11.8 Glucose 92 Calcium 8.6 TSH Assessment/Plan Active and Suspected Problems NSTEMI (non-ST elevated myocardial infarction) (Acute) Chest pain (Acute) Patient is a 47-year-old female admitted 05/23/2017 due to chest pain. She has no other past medical history. 1. Chest pain-EKG without ST-T changes. Troponin elevated. Cardiology consulted. Patient did complain of a single episode of chest pain last evening. Denies further episodes since that time. No previous cardiac history or stress test/cardiac catheterization. Continue aspirin, statin, Brilinta, beta- leann. D-dimer normal. Chest x-ray unremarkable. Initial blood pressure on admission elevated which has since normalized. Echocardiogram shows an estimated ejection fraction of 65%. Patient may undergo cardiac catheterization later this afternoon or tomorrow. Continue as needed nitrate. Monitor telemetry. Repeat EKG with recurrence of chest pain. 2. Non-ST elevation PR-troponin 0.15, 0.21, 0.16, 0.13. Plan as noted above. 3. Hypokalemia, mild-Resolved. Monitor BMP. 4. Anxiety-untreated. Will discuss with patient outpatient therapy options. DVT prophylaxis-heparin gtt. This patient was seen by [facility] under the supervision of Dr. Almonte.
--- NOTE | 2017-05-25 17:09 | PCM.DC ---
- Discharge Diagnoses Current Active Problems: Current Active and Chronic Problems NSTEMI (non-ST elevated myocardial infarction) (Acute) Chest pain (Acute) You will use the following diet at home:: Cardiac - low fat, low salt Your food should be the consistency of: Regular Your liquids should be the consistency of: Regular/Thin Discharge Activity: Return to Normal Activity May shower in (days): 1 May resume sexual activity in: 10-14 days Weight Bearing Status: Full weight bearing Lifting Restrictions: 5-10 pounds for the next 2 weeks Call your doctor if your incision/area has: Continuous Slow Oozing, Sudden Increased Bleeding, Increased Pain/ Swelling, Increased Redness, Foul Smelling Discharge, Swelling at the incision site Call your doctor if you observe: Fever of 101 or Higher, Shortness of breath, Dizziness, Fainting spells, Swelling in the ankles, Chest pain Additional Instructions: You may remove the dressing in 1 day. You may shower in 1 day. No sex for 10-14 days. Do not lift more than 10 pounds until seen in the cardiolgy office for a groin check in 1 week. I have given you a prescription for Trazodone to take at night as needed for insomnia. It is actually an older anti-depressant that we use in small doses at night because one of the biggest side effects is to make you sleepy. If you take it before Midnight you should not have any hangover the next day. It is not addictive. Keep working at lifestyle changes to help control your anxiety. Allergies/Adverse Reactions: Allergies No Known Allergies Allergy (Verified 04/16/13 22:11) Medications to take at Discharge Aspirin E.C. [Ecotrin] 81 mg PO DAILY@0800 tablet 05/25/17 Trazodone HCl [Desyrel] 50 mg PO QHS #30 tab 05/25/17 The following prescriptions were given: Trazodone HCl [Desyrel] 50 mg PO QHS #30 tab Primary Care Physician: Emir Nava DO [Primary Care Provider] - Please follow up with your Primary Care Physician in: 2 weeks Please Follow Up With: Hira Regan MD When: 1 week for a groin check Proposed Discharge Date: 05/25/17
--- NOTE | 2017-05-25 17:26 | CL.D_ITS ---
Patient Name: NICK MCCOLLUM Study Date: 05/25/2017 Performing: Hira Regan MD Ht: 69 inches 175 cm : 1970 Wt: 200.9 lbs 91 kg Age: 47 Gender: female BSA: 2.07 PROCEDURE(S) PERFORMED TH53-ZPP/COR/LV CLINICAL PROFILE AND INDICATIONS INDICATIONS: Acute Coronary Syndrome, Non-Q DE Angina Classification Anginal Classification w/in 2 Weeks: CCS III CAD Presentations: Non-STEMI. CONCLUSIONS Normal Left Ventricular End Diastolic Pressure Normal LV size, wall motion,and systolic function LVEF: by LV gram 65 % Normal coronary arteries RECOMMENDATIONS Risk factor modification Medical therapy DESCRIPTION OF PROCEDURE The patient arrived to the procedure lab. The risks and benefits of the procedure as well as a full d escription of our services here and current unavailability of surgical backup were fully explained to the patient and/or their significant other prior to the catheterization. The Timeout was completed, verifying the correct patient and procedure. The patient's procedural site was prepped and draped in the usual fashion. Local anesthetic was given subcutaneously to right radial region with Lidocaine 2% . Using a modified Seldinger technique, arterial access was obtained via the right radial artery, a 6 Fr sheath was inserted. Left Coronary Artery selective angiography was performed in multiple views u sing a 5 Fr. 4.0 [place] catheter. Right Coronary Artery selective angiography was then performed in mu ltiple views using a 5 Fr. 3DRC (Chidi) catheter. Left Ventriculography was performed in GRIGGS proje ction using a 5 Fr. Pig[place] catheter. LV to AO pullback pressures were then recorded.The arterial she ath was pulled and a TR Band was applied for hemostasis- 18cc of air CORONARY ANGIOGRAPHY DOMINANCE: Right Dominant LEFT HEART ASSESSMENT Left Ventricular Ejection Fraction: by LV Gram 65 % Normal LV wall motion Normal Left Ventricular End Diastolic Pressure LVEDP: 9 mmHg LEFT MAIN: Angiographically normal LEFT ANTERIOR DECENDING ARTERY: Angiographically normal CIRCUMFLEX ARTERY: Angiographically normal RIGHT CORONARY ARTERY: Angiographically normal VALVE FINDINGS: Normal Aortic Valve function Normal Mitral Valve function AORTIC ROOT: Angiographically normal COMPLICATIONS No Complications PROCEDURE MEDICATIONS Versed 1 mg IV Fentanyl 50 mcg IV Versed 1 mg IV Fentanyl 50 mcg IV Oxygen: 2 L/min via nasal cannula SUMMARY OF HEMODYNAMIC DATA Time AIR REST ECG 16:23:30 AO 131/67 (97) SA 16:34:52 LV 137/1, 9 16:52:39 LV 139/0, 13 16:52:48 LV 146/0, 13 16:53:56 LVp 145/0, 16 16:54:02 AOp 149/76 (107) 16:54:07 Signed By Hira Regan MD On 05/25/2017 17:25:46 Hira Regan MD
--- NOTE | 2017-05-25 18:29 | NURSING ---
REVIEWED AND AGREED WNathanael BULLARD CHARTING.
[2017-05-25] MEDS: Acetaminophen 325 MG Tablet 650 MG PO (19:34)
[2017-05-25] MEDS: traZODone 50 MG Tablet PO (23:01)
[2017-05-25] MEDS: Metoprolol Tartrate 25 MG Tablet PO (23:02)
[2017-05-26] MEDS: Acetaminophen 325 MG Tablet 650 MG PO ×2 (02:52→09:25)
[2017-05-26 02:55] VITALS: BP 127/56; PULSE 59; RESP 16; TEMP 36.4; O2SAT 96
[2017-05-26 02:59] VITALS: PULSE 53
[2017-05-26 05:51] LABS: Hematocrit 35.5 % (37-47); Hemoglobin 11.3 g/dl (12.0-15.0)
[2017-05-26 06:08] LABS: Anion Gap 8 (5-15); BUN 7 mg/dL (7-18); BUN/Creat Ratio 15.8 RATIO (10-20); Calcium,Total 8.5 mg/dL (8.5-10.1); Chloride 107 mmol/L (98-107); Creatinine, Serum 0.44 mg/dL (0.55-1.02); EST Glomerular Filtration Rate 162 mL/min (>60); Est Glom Filt Rate - Afr Amer 196 mL/min (>60); Estimated Creatinine Clearance 165.19 ml/min; Glucose 85 mg/dL (70-110); Potassium 3.8 mmol/L (3.5-5.1); Sodium Level 140 mmol/L (136-145)
[2017-05-26 06:50] VITALS: PULSE 52
[2017-05-26 09:00] VITALS: BP 116/75; PULSE 64; RESP 16; TEMP 36.5; O2SAT 96
[2017-05-26] MEDS: Aspirin E.C. 81 MG Tablet PO (09:00)
[2017-05-26 09:25] VITALS: PULSE 64
[2017-05-26] MEDS: Metoprolol Tartrate 25 MG Tablet PO (09:25)
[2017-05-26] MEDS: Famotidine 20 MG Tablet PO (09:25)
[2017-05-26 10:51] VITALS: PULSE 56
--- NOTE | 2017-05-26 11:22 | PCM.DC.SUM ---
Discharge Date and Diagnosis Date of Admission: 05/23/17 Date of Discharge: 05/26/17 - Primary Discharge Diagnosis Active and Suspected Problems 1. Non-ST segment elevation [place]-demand ischemia 2. Mild hypokalemia-resolved 3. Anxiety, uncontrolled - Secondary Discharge Diagnosis Chronic Problems Anxiety (Chronic) Hospital Course and Treatment Imaging Results: Diagnostic Data Chest X-Ray 05/23/17 17:14 IMPRESSION: Normal x-ray examination of the chest. Electronically Signed: Shamar DO Ana at 17:38 EST Tel , Service support , Dr. Regan- Cardiology Operations: None Procedures: 2-D Echocardiogram, Cardiac catheterization Summary of Care Provided: Patient is a 47-year-old female admitted 05/23/2017 due to chest pain. She has no other past medical history. 1. Non-ST segment elevation GA-EKG without ST-T changes. Troponin elevated, peak of 0.21. Cardiology consulted. Patient underwent cardiac catheterization 05/25/2017 which showed normal coronary arteries. Echocardiogram showed an estimated ejection fraction of 65%. No arrhythmias noted on telemetry. D-dimer normal. Chest x-ray unremarkable. Patient will be discharged on 30 day event monitor and follow-up with Dr. Regan as outpatient. She will continue aspirin at discharge. 2. Hypokalemia, mild-Resolved. 4. Anxiety/insomnia-patient was started on trazodone 50 mg nightly. She was encouraged to practice lifestyle modifications to help control anxiety. This patient was seen by [facility] under the supervision of Dr. Almonte. General: Alert, Oriented x3, Cooperative, No apparent distress HEENT: Atraumatic, PERRLA, EOMI, Normocephalic Neck: Supple, No JVD, Negative Carotid Bruits Lungs: Clear to auscultation, Normal air movement Cardiovascular: Regular rate, Regular Rhythm, Normal S1, Normal S2, No murmurs Abdomen: Bowel Sounds Present, Soft, Non Tender, Non-Distended Extremities: No clubbing, No cyanosis, No edema, Capillary Refill Less than 3 Seconds Skin: No rashes, No breakdown Musculoskeletal: No Tenderness to Palpation of Joints or Extremities Neurological: Cranial nerves II-XII grossly intact, Neuro grossly intact Psych/Mental Status: Normal Affect, Appropriate Patient seen and examined prior to discharge. Physical assessment as noted above. Patient denies further chest pain. She will be discharged on 30 day event monitor, to follow-up with cardiology. Patient stable for discharge home. This patient was seen by [facility] under the supervision of Dr. Teague. Discharge Diet: Low fat/ Low Cholesterol Discharge Activity: Return to Normal Activity May shower in (days): 1 May resume sexual activity in: 10-14 days Weight Bearing Status: Full weight bearing Call your doctor if your incision/area has: Continuous Slow Oozing, Sudden Increased Bleeding, Increased Pain/ Swelling, Increased Redness, Foul Smelling Discharge, Swelling at the incision site Call your doctor if you observe: Fever of 101 or Higher, Shortness of breath, Dizziness, Fainting spells, Swelling in the ankles, Chest pain Home Medications: Medications to take at Discharge Aspirin E.C. [Ecotrin] 81 mg PO DAILY@0800 tablet 05/25/17 Trazodone HCl [Desyrel] 50 mg PO QHS #30 tab 05/25/17 Following Prescrptions Were Given to Patient: Trazodone HCl [Desyrel] 50 mg PO QHS #30 tab Primary Care Physician: Emir Nava DO [Primary Care Provider] - Please follow up with your Primary Care Physician in: 2 weeks Please Follow Up With: Hira Regan MD When: 1 week for a groin check Disposition: Home Minutes spent on discharge:: 35 Patient Condition:: Stable Meaningful Use Info Meaningful Use Diagnoses (Choose all that apply): None applicable
--- NOTE | 2017-05-26 11:32 | DS.PCM_ITS ---
Discharge Date and Diagnosis Date of Admission: 05/23/17 Date of Discharge: 05/26/17 - Primary Discharge Diagnosis Active and Suspected Problems 1. Non-ST segment elevation NC-demand ischemia 2. Mild hypokalemia-resolved 3. Anxiety, uncontrolled - Secondary Discharge Diagnosis Chronic Problems Anxiety (Chronic) Hospital Course and Treatment Imaging Results: Diagnostic Data Chest X-Ray 05/23/17 17:14 IMPRESSION: Normal x-ray examination of the chest. Electronically Signed: Shamar DO Ana at 17:38 EST Tel , Service support , Dr. Regan- Cardiology Operations: None Procedures: 2-D Echocardiogram, Cardiac catheterization Summary of Care Provided: Patient is a 47-year-old female admitted 05/23/2017 due to chest pain. She has no other past medical history. 1. Non-ST segment elevation NC-EKG without ST-T changes. Troponin elevated, peak of 0.21. Cardiology consulted. Patient underwent cardiac catheterization 05/25/2017 which showed normal coronary arteries. Echocardiogram showed an estimated ejection fraction of 65%. No arrhythmias noted on telemetry. D- dimer normal. Chest x-ray unremarkable. Patient will be discharged on 30 day event monitor and follow-up with Dr. Regan as outpatient. She will continue aspirin at discharge. 2. Hypokalemia, mild-Resolved. 4. Anxiety/insomnia-patient was started on trazodone 50 mg nightly. She was encouraged to practice lifestyle modifications to help control anxiety. This patient was seen by [facility] under the supervision of Dr. Almonte. General: Alert, Oriented x3, Cooperative, No apparent distress HEENT: Atraumatic, PERRLA, EOMI, Normocephalic Neck: Supple, No JVD, Negative Carotid Bruits Lungs: Clear to auscultation, Normal air movement Cardiovascular: Regular rate, Regular Rhythm, Normal S1, Normal S2, No murmurs Abdomen: Bowel Sounds Present, Soft, Non Tender, Non-Distended Extremities: No clubbing, No cyanosis, No edema, Capillary Refill Less than 3 Seconds Skin: No rashes, No breakdown Musculoskeletal: No Tenderness to Palpation of Joints or Extremities Neurological: Cranial nerves II-XII grossly intact, Neuro grossly intact Psych/Mental Status: Normal Affect, Appropriate Patient seen and examined prior to discharge. Physical assessment as noted above. Patient denies further chest pain. She will be discharged on 30 day event monitor, to follow-up with cardiology. Patient stable for discharge home. This patient was seen by [facility] under the supervision of Dr. Teague. Discharge Diet: Low fat/ Low Cholesterol Discharge Activity: Return to Normal Activity May shower in (days): 1 May resume sexual activity in: 10-14 days Weight Bearing Status: Full weight bearing Call your doctor if your incision/area has: Continuous Slow Oozing, Sudden Increased Bleeding, Increased Pain/ Swelling, Increased Redness, Foul Smelling Discharge, Swelling at the incision site Call your doctor if you observe: Fever of 101 or Higher, Shortness of breath, Dizziness, Fainting spells, Swelling in the ankles, Chest pain Home Medications: Medications to take at Discharge Aspirin E.C. [Ecotrin] 81 mg PO DAILY@0800 tablet 05/25/17 Trazodone HCl [Desyrel] 50 mg PO QHS #30 tab 05/25/17 Following Prescrptions Were Given to Patient: Trazodone HCl [Desyrel] 50 mg PO QHS #30 tab Primary Care Physician: Emir Nava DO [Primary Care Provider] - Please follow up with your Primary Care Physician in: 2 weeks Please Follow Up With: Hira Regan MD When: 1 week for a groin check Disposition: Home Minutes spent on discharge:: 35 Patient Condition:: Stable Meaningful Use Info Meaningful Use Diagnoses (Choose all that apply): None applicable
== END 2017-05-26 13:48 | disposition home or self-care (01) | DRG 282 ==
LOC: ED 17:30 → PCU 19:45
PROVIDERS: Internal Medicine; Internal Medicine Cardiovascular Disease; Nurse Practitioner Family; Admitting Provider Hospitalist; Emergency Provider Emergency Medicine; Family Provider Student in an Organized Health Care Education/Training Program; PCP Student in an Organized Health Care Education/Training Program; Visit Provider Internal Medicine
DX: I21.4 Non-ST elevation (NSTEMI) myocardial infarction (principal); E87.6 Hypokalemia; F41.9 Anxiety disorder, unspecified
CPT/HCPCS: 36415; 71045; 80048; 80061; 84443; 84484; 85014; 85018; 85025; 85027; 85379; 85610; 85730; 93005; 93306; 93458; 99152; 99153; 99283; J7030; Q9967; C1769; C1894

== ENCOUNTER → 2017-09-05 17:24 | Outpatient (CLI) | payer OTHER, SELFPAY ==
--- NOTE | 2017-09-05 15:30 | FLU_PTH ---
PATIENT: NICK MCCOLLUM [id number] AGE/SX: 54/F ROOM: RE09/05/[address]: Dr. Trinh Cesar MD : 1970 BED: DIS: SPEC #: [id number] RECD: 09/05/17 16:58 STATUS: PAWEL VALERIO #: [id number] FREIDA: 09/05/17 15:[address]: Trinh Cesar DEPT: CYTOLOGY RECD BY: Chidi Srinivasan Tissues: A - Thyroid gland, NOS B - Thyroid gland, NOS C - Thyroid gland, NOS D - Thyroid gland, NOS Procedures: Pap Stain (control) Special Stain Group II Surgery Specimen Level IV Cell Block Cytospin Fluid Cytology Other HEADER OPERATION: Ultrasound-guided fine needle aspiration left thyroid and right thyroid PRE-OP DIAGNOSIS: Thyroid nodules TISSUE SUBMITTED: A ? FNA left thyroid fluid for cytology, B ? FNA left thyroid slides (8), C - FNA right thyroid fluid for cytology, D ? FNA right thyroid slides (8) DIAGNOSIS CYTOLOGY A. Left thyroid nodule fluid, FNA (cytospin and cell block): Benign follicular cells and colloid noted. B. Left thyroid nodule, FNA (smears): Consistent with benign follicular nodule. See cytology study and comment. C. Right thyroid nodule fluid, FNA (cytospin and cell block): Benign follicular cells, macrophages and colloid noted.. D. Right thyroid nodule, FNA (smears): Consistent with benign follicular nodule. See cytology study and comment. SJ:ivelisse 09/09/17 COMMENT B. The findings may represent adenomatoid colloid nodule. D. The findings are suggestive of adenomatoid nodule with focal cystic changes. Correlation with clinical, radiologic findings and appropriate follow up are necessary. Please make reference to previous cytology ([id number]) right thyroid nodule and left thyroid nodule, FNA with diagnosis of consistent with colloid nodule. CYTOLOGY STUDY Slides are reviewed. B. The specimen is adequate for evaluation. The specimen consists of benign follicular cells and colloid. D. The specimen is adequate for evaluation. The specimen consists of benign follicular cells, macrophages and colloid. CYTOLOGY GROSS A - Received is 30 ml of steven cloudy fluid labeled with the patient's name and and designated per the requisition as left thyroid. Submitted for cytology preparation including cell block. B - Received are eight smears labeled with the patient's name and designated per the requisition as left thyroid. Submitted for staining. C - Received is 30 ml of steven cloudy fluid labeled with the patient's name and and designated per the requisition as right thyroid. Submitted for cytology preparation including cell block. D - Received are eight smears labeled with the patient's name and designated per the requisition as right thyroid. Submitted for staining. 09/08/17 TC:5 CPT: 77324 x2, 14445 x2, 41792 x2
== END ==
PROVIDERS: Visit Provider Surgery
DX: E04.1 Nontoxic single thyroid nodule (principal)
CPT/HCPCS: 88108; 88161; 88305; 88313

== ENCOUNTER 2018-05-28 19:44 | Observation (INO) | payer OTHER, SELFPAY ==
[2018-05-28 19:45] VITALS: BP 167/93; PULSE 79; RESP 17; TEMP 36.3; O2SAT 100; BMI 22.8
--- NOTE | 2018-05-28 19:57 | CT_ITS ---
STUDY: CT ABDOMEN AND PELVIS WITH CONTRAST REASON FOR EXAM: Female, 48 years old. Right-sided chest and abdominal pain. RADIATION DOSAGE (If Supplied By Facility): CTDIvol = ( 13.45 ) mGy, DLP = ( 739.58 ) mGycm TECHNIQUE: Transaxial images were obtained from the dome of the diaphragm to the symphysis pubis without oral contrast. 100ML ml of Isovue 300 contrast was administered. Sagittal and coronal images were reconstructed. Individualized dose optimization techniques were used for this CT. COMPARISON: None. FINDINGS: The visualized lung bases are unremarkable. The visualized portions of the heart are within normal limits. Interval hypodensities throughout the liver parenchyma are present with the largest within the right hepatic lobe measuring 1.8 cm likely consistent with multiple hepatic cysts given appearance though many are too small to characterize. There is apparent mild gallbladder wall thickening and pericholecystic fluid with a thin rim of hypodensity surrounding the gallbladder wall. Normal spleen. Normal pancreas. Normal bilateral adrenal glands. Normal right kidney. Normal left kidney. Normal visualized stomach. Normal small intestine. Normal colon. There is non-visualization of the appendix. Normal abdominal aorta. Normal inferior vena cava. Normal retroperitoneum. Bladder is largely contracted. Normal visualized uterus. Normal abdominal wall. There are diffuse degenerative changes of the visualized lumbar spine. CT/Abdomen/Pelvis W IV Cont ONLY IMPRESSION: 1. Findings consistent with mild gallbladder wall thickening and pericholecystic fluid with underlying inflammation not excluded, clinically correlate. Further evaluation may be obtained with dedicated right upper quadrant ultrasound as clinically warranted. 2. Multiple hypodensities throughout the liver parenchyma likely consistent with hepatic cysts given appearance though many too small to characterize. Otherwise no evidence of focal acute intra-abdominal process, obstruction or inflammation. Electronically Signed: Miki Tabares DO at 21:07 EST , Service support ,
--- NOTE | 2018-05-28 19:57 | ED.VISSUMM ---
- ER Visit Summary Date of Service: 05/28/18 Chief Complaint: Right-sided abdominal pain History of Present Illness: The patient is a 48 F who presents for right-sided abdominal pain that started last night. Today pain is radiating into the back and the right chest. Patient states the abdominal pain is spasming, and the pain in her back and chest is sharp. She took gas medication because she thought it might be intestinal gas. She denies fever, nausea, vomiting, diarrhea, other chest pain, shortness of breath. She denies any urinary symptoms. She states her menses have been irregular recently. She had a cardiac workup 1 year ago without any noted findings on catheterization. She takes aspirin daily. Patient also takes Wellbutrin. Denies alcohol or tobacco use. No history of abdominal surgery. Physical Examination: Vital signs: afebrile, hemodynamically stable, no hypoxia on room air General: well nourished, well developed, in no distress Skin: warm, dry, no rash, no pallor HEENT: normocephalic and atraumatic; PERRL, EOMI, moist mucous membranes Cardiovascular: regular rate and rhythm without murmurs, no peripheral edema, 2+ pulses all distal extremities Respiratory: No increased work of breathing, lungs are clear to auscultation bilaterally, no rales, rhonchi or wheezing Abdominal: Abdomen is soft, tender in the right mid and lower regions, no right upper quadrant tenderness, with normoactive bowel sounds, no guarding or rebound, no masses MSK: Moves all extremities, no deformities, normal strength Neuro: Awake and alert, oriented ?4. No facial droop, sensation and motor function intact and symmetric Test Results: Abnormal Lab Results 05/28/18 05/28/18 05/28/18 20:01 20:01 20:01 WBC 8.2 RBC 4.76 Hgb 12.1 Hct 38.8 MCV 81.5 MCH 25.4 L MCHC 31.2 L RDW 14.2 RDW Differential 42.3 Plt Count 285 MPV 10.6 Immature Gran % (Auto) 0.100 Neut % (Auto) 60.3 Lymph % (Auto) 33.2 [place] % (Auto) 5.3 Eos % (Auto) 0.6 Baso % (Auto) 0.5 Absolute Neuts (auto) 4.9 Absolute Lymphs (auto) 2.72 Total Counted Not Reportable Sodium 140 Potassium 3.3 L Chloride 106 Carbon Dioxide 25.0 Anion Gap 9 BUN 4 L Creatinine 0.54 L Estim Creat Clear Calc 133.15 Est GFR (MDRD) Af Amer 153 Est GFR (MDRD) Non-Af 127 BUN/Creatinine Ratio 7.3 L Glucose 98 Calcium 8.8 Total Bilirubin 0.30 AST 9 L ALT 14 Alkaline Phosphatase 70 Total Protein 7.3 Albumin 3.7 Globulin 3.6 Albumin/Globulin Ratio 1.0 Lipase 96 Urine Color Urine Clarity Urine pH Ur Specific Otho Urine Protein Urine Glucose (UA) Urine Ketones Urine Occult Blood Urine Nitrite Urine Bilirubin Urine Urobilinogen Ur Leukocyte Esterase Urine RBC Urine WBC Ur Squamous Epith Cells Urine Bacteria Urine Mucus Urine Test Negative 05/28/18 20:01 WBC RBC Hgb Hct MCV MCH MCHC RDW RDW Differential Plt Count MPV Immature Gran % (Auto) Neut % (Auto) Lymph % (Auto) [place] % (Auto) Eos % (Auto) Baso % (Auto) Absolute Neuts (auto) Absolute Lymphs (auto) Total Counted Sodium Potassium Chloride Carbon Dioxide Anion Gap BUN Creatinine Estim Creat Clear Calc Est GFR (MDRD) Af Amer Est GFR (MDRD) Non-Af BUN/Creatinine Ratio Glucose Calcium Total Bilirubin AST ALT Alkaline Phosphatase Total Protein Albumin Globulin Albumin/Globulin Ratio Lipase Urine Color Straw Urine Clarity Clear Urine pH 7.0 Ur Specific Otho 1.005 Urine Protein Negative Urine Glucose (UA) Normal Urine Ketones Negative Urine Occult Blood 50 H Urine Nitrite Negative Urine Bilirubin Negative Urine Urobilinogen Normal Ur Leukocyte Esterase Negative Urine RBC 0-5 SEEN Urine WBC 0 SEEN Ur Squamous Epith Cells 0 SEEN Urine Bacteria 0 SEEN Urine Mucus 0 SEEN Urine Test Clinical Impression(s) from Imaging Studies Abdomen/Pelvis CT 05/28/18 19:57 IMPRESSION: 1. Findings consistent with mild gallbladder wall thickening and pericholecystic fluid with underlying inflammation not excluded, clinically correlate. Further evaluation may be obtained with dedicated right upper quadrant ultrasound as clinically warranted. 2. Multiple hypodensities throughout the liver parenchyma likely consistent with hepatic cysts given appearance though many too small to characterize. Otherwise no evidence of focal acute intra-abdominal process, obstruction or inflammation. Electronically Signed: Miki Tabares DO at 21:07 EST , Service support , Gallbladder Ultrasound 05/28/18 21:16 IMPRESSION: 1. Multiple gallstones with positive Ford sign and trace pericholecystic fluid with upper limits normal of wall thickening concerning for acute cholecystitis in the appropriate clinical setting. 2. Multiple hepatic simple appearing cysts as above. Electronically Signed: Miki Tabares DO at 22:30 EST , Service support , Medications Given Discontinued Medications Sodium Chloride () 1,000 mls @ 1,000 mls/hr IV .Q1H ONE Stop: 05/28/18 20:55 Last Admin: 05/28/18 20:06 Dose: 1,000 mls/hr Ketorolac Tromethamine (Toradol) 15 mg IV X1 ONE Stop: 05/28/18 20:02 Last Admin: 05/28/18 20:07 Dose: 15 mg Ondansetron HCl (Zofran) 4 mg IV X1 ONE Stop: 05/28/18 19:57 Last Admin: 05/28/18 20:06 Dose: 4 mg Emergency Department Course and Treatment: Patient's right-sided chest and back pain can get more consistent with referred pain rather than primary chest pain. Patient was ordered IV fluids, Zofran and Toradol for pain. Labs were performed showing no leukocytosis, no transaminitis, and a normal lipase. negative. Because of patient's tenderness seems more mid to low abdomen, CT of the abdomen and pelvis was performed. It showed concerning findings for cholecystitis with recommended right upper quadrant ultrasound. Right upper quadrant ultrasound was performed and was consistent with acute cholecystitis. Patient's pain was controlled with the Toradol. Patient was discussed with Dr. Cesar and admitted for further management of acute cholecystitis. Treatment Plan: [] Disposition: [] Impression: acute cholecystitis This note was generated with Emit[employer] dictation software. It may contain incorrect words, spelling, and punctuation that were not noted in review of the chart prior to signing ED Disposition - Plan for ED Patient: Chief Complaint: Abd Pain Referrals: Emir Nava DO [Primary Care Provider] -
[2018-05-28] MEDS: Ondansetron 4 MG/2 ML Vial IV (20:06)
[2018-05-28] MEDS: 0.9% Normal Saline 1,000 ML 1000 ML IV (20:06)
[2018-05-28] MEDS: Ketorolac 15 MG/ML Vial IV (20:07)
[2018-05-28 20:09] LABS: Bacteria 0 SEEN /hpf (None Seen); Mucous, Urine 0 SEEN /hpf (<or=2+); Squamous Epithelial Cells - UA 0 SEEN /hpf (5-10); White Blood Cells 0 SEEN /hpf (0-5)
[2018-05-28 20:12] LABS: Color, Urine Straw (Yellow); Glucose, Dipstick Normal (Normal); Ketone-Dipstick Negative (Negative); Leukocyte Esterase-Dipstick Negative /ul (Negative); Nitrite-Dipstick Negative (Negative); Occult Blood-Urine 50 /ul (Negative); Protein-Dipstick Negative (Negative); Specific Gravity, Urine 1.005 (1.002-1.030); Urine Bilirubin Dipstick Negative (Negative); Urine Clarity Clear (Clear); Urine Urobilinogen Normal (Normal)
[2018-05-28 20:16] LABS: Internal QC Validated? YES +Cl - CLEAR BKGD; Pregnancy, Urine Negative Negative
[2018-05-28 20:18] LABS: Red Blood Cells-Urine 0-5 SEEN /hpf (0-5)
[2018-05-28 20:26] LABS: AST(SGOT) 9 U/L (15-37); Alanine Aminotransfer ALT/SGPT 14 U/L (13-56); Albumin, Serum 3.7 g/dL (3.2-5.0); Alkaline Phosphatase 70 U/L (45-117); Anion Gap 9 (5-15); BUN 4 mg/dL (7-18); BUN/Creat Ratio 7.3 RATIO (10-20); Calcium,Total 8.8 mg/dL (8.5-10.1); Chloride 106 mmol/L (98-107); Creatinine, Serum 0.54 mg/dL (0.55-1.02); EST Glomerular Filtration Rate 127 mL/min (>60); Est Glom Filt Rate - Afr Amer 153 mL/min (>60); Estimated Creatinine Clearance 133.15 ml/min; Globulin 3.6 g/dL (2.2-4.2); Glucose 98 mg/dL (74-106); Lipase 96 U/L (73-393); Potassium 3.3 mmol/L (3.5-5.1); Protein, Total 7.3 g/dL (6.4-8.2); Sodium Level 140 mmol/L (136-145)
[2018-05-28 20:33] LABS: Absolute Lymphocyte Count 2.72 X10^3/ul (0.83-4.51); Absolute Neutrophil Count 4.9 X10^3/uL (2.0-7.7); Basophil# 0.04 X10^3/uL; Basophil% 0.5 % (0-1); Eosinophil# 0.05 X10^3/uL; Eosinophils% 0.6 % (0-5); Hematocrit 38.8 % (37-47); Hemoglobin 12.1 g/dl (12.0-15.0); Lymphocyte # 2.72 X10^3/ul (4.0); Lymphocyte % 33.2 % (19-41); Mean Corp Hgb Conc 31.2 g/gl (32-36); Mean Corpuscular Hgb 25.4 pg (27.0-32.0); Mean Corpuscular Volume 81.5 fL (81-99); Mean Platelet Vol. 10.6 fl (6.2-12.0); Monocyte# 0.43 X10^3/uL; Monocyte% 5.3 % (0-10); Neutrophil # 4.94 X10^3/uL (2.7-7.7); Neutrophil % 60.3 % (47-70); Platelet Count 285 K/mm3 (150-450); RBC Distribution Width CV 14.2 % (11.6-14.6); RBC Distribution Width SD 42.3 fl (35.1-43.9); Red Blood Count 4.76 M/mm3 (4.2-5.4); White Blood Count 8.2 K/mm3 (4.4-11.0)
[2018-05-28 20:34] LABS: POSITIVE COUNT NO; POSITIVE DIFFERENTIAL NO; POSITIVE MORPHOLOGY NO
--- NOTE | 2018-05-28 21:16 | US_ITS ---
STUDY: ABDOMINAL ULTRASOUND - RIGHT UPPER QUADRANT REASON FOR VISIT: Female, 48 years old. Right-sided abdominal pain. TECHNIQUE: Ultrasound evaluation of the right upper quadrant was performed with real-time and static diop-scale imaging. TECHNICAL QUALITY: Adequate. COMPARISON: None. FINDINGS: Liver: The liver measures 17.0 cm. There is normal echogenicity of the liver. The bile ducts are within normal limits. There is hepatic color flow. The direction of portal flow is hepatopetal. There is no demonstrated mass lesion. Multiple hypoechoic cysts within the left and right hepatic lobe are present with the largest on the right measuring 2.1 x 2.1 x 1.9 cm and on the left measuring 1.8 x 1.6 x 1.5 cm. Gallbladder: Normal distended gallbladder. The gallbladder wall measures 3 mm. There is a positive sonographic Ford's sign. There is pericholecystic fluid. There are multiple echogenic structures within the gallbladder, consistent with multiple gallstones. Common Bile Duct (C.B.D.): The common bile duct measures 4 mm. Pancreas: Normal visualized pancreatic head and body with the tail incompletely seen. There is normal echogenicity of the pancreas. There is no demonstrated pancreatic mass or cyst. Right Kidney: Normal size of the right kidney. The right kidney measures 11.1 x 5.8 x 4.0 cm. Normal renal cortex. The right cortex measures 1.3 cm. There is no demonstrated renal mass or cyst. There is no right hydronephrosis. US/Gallbladder IMPRESSION: 1. Multiple gallstones with positive Ford sign and trace pericholecystic fluid with upper limits normal of wall thickening concerning for acute cholecystitis in the appropriate clinical setting. 2. Multiple hepatic simple appearing cysts as above. Electronically Signed: Miki Tabares DO at 22:30 EST , Service support ,
[2018-05-28 21:55] VITALS: PULSE 87; RESP 16; O2SAT 98
[2018-05-28 23:25] VITALS: PULSE 78; RESP 16; O2SAT 99
[2018-05-29 00:02] VITALS: BMI 22.5; BMI 22.6
[2018-05-29 00:40] VITALS: BP 137/80; PULSE 66; RESP 16; TEMP 36.3; O2SAT 98
[2018-05-29] MEDS: Lactated Ringers 1,000 ML 120 ML IV (00:56)
--- NOTE | 2018-05-29 04:55 | EKG12_ITS ---
Test Reason : AM EKG Blood Pressure : / mmHG Vent. Rate : 070 BPM Atrial Rate : 070 BPM P-R Int : 118 ms QRS Dur : 088 ms QT Int : 450 ms P-R-T Axes : 025 067 071 degrees QTc Int : 486 ms Normal sinus rhythm Prolonged QT Abnormal ECG Confirmed by PAULINO SPRINGER, MARINO ([id number]), rn pool RUDY FELIPE ([id number]) on 06/02/2018 3:55:06 PM Referred By: Trinh Cesar Confirmed By:MARINO BOB MD
[2018-05-29 05:16] VITALS: BP 127/75; PULSE 63; RESP 16; TEMP 36.5; O2SAT 99
[2018-05-29 07:26] LABS: Anion Gap 7 (5-15); BUN 4 mg/dL (7-18); BUN/Creat Ratio 7.4 RATIO (10-20); Calcium,Total 8.1 mg/dL (8.5-10.1); Chloride 109 mmol/L (98-107); Creatinine, Serum 0.54 mg/dL (0.55-1.02); EST Glomerular Filtration Rate 128 mL/min (>60); Est Glom Filt Rate - Afr Amer 155 mL/min (>60); Estimated Creatinine Clearance 133.15 ml/min; Glucose 78 mg/dL (74-106); Potassium 3.5 mmol/L (3.5-5.1); Sodium Level 141 mmol/L (136-145)
--- NOTE | 2018-05-29 07:27 | PCM.HP.BLA ---
History and Physical Date of Admission: 05/29/18 Chief Complaint: abdominal pain History of Present Illness: Otherwise healthy 48 y/o WF presents with sudden onset of abdominal pain beginning about two days ago. Pain increased in severity prompting visit to [facility] ED last night. Workup with CT scan and US revealed cholelithiasis and cholecystitis. Pain radiated to right shoulder area and back. Some nausea, denies emesis. Increased intraabdominal gas. denies fevers. No gallbldder disease knwon in family. PAST MEDICAL HISTORY ? Chronic headaches ? ? Routine gynecological examination ? ? sees Dr. Morris ? PAST SURGICAL HISTORY ? ANKLE ARTHROSCOPY/SURGERY ? 04/2013 ? left ankle fracture repair with plates/screws ? FNA WITH IMAGING ? 04/13/14 ? U/S FNA bilateral thyroid nodules ? HEART CATHETERIZATION ? 05/2017 ? TONSILLECTOMY HX Medications: Cholecalciferol, Vitamin D3, (VITAMIN D-3) 2,000 unit cap Take by mouth. buPROPion (WELLBUTRIN) 75 mg tablet Take 1 tablet by mouth once daily. aspirin, enteric coated (ASPIRIN, ENTERIC COATED) 81 mg EC tablet Take 81 mg by mouth once daily. Allergies: Has no known drug allergies Social history: TOB use denies Review of Systems: General - denies fevers Cardiovascular denies chest pain, denies history of heart attack, Pulmonary denies shortness of breath, denies coughing up blood Gastrointestinal as per HPI, denies blood in stools Neurological denies numbness/weakness of extremities, denies seizures denies history of stroke Genitourinary denies burning with urination, denies blood in urine Hematological denies spontaneous/prolonged bleeding Skin denies open non healing wounds Musculoskeletal denies arthritis Endocrine denies diabetes Psychological no mood changes Physical examination: Vital signs Temp 97.7F BP 116/72 RR 16 HR 68 General WD/WN WF in no apparent distress, alert and oriented, not septic appearing HEENT Normocephalic. EOM intact with sclera clear and no icterus noted. Neck is supple with no jugular venous distention noted. Trachea is midline. Lungs clear to auscultation. normal breath sounds No rales/rhonchi/wheezing noted. No labored breathing noted, such as retractions. No cough heard. Heart normal S1 and S2 auscultated. No rubs/clicks/murmurs noted. Normal size and location by auscultation. Abdomen soft but tender in right upper quadrant, no peritoneal signs noted. Normal bowel sounds Extremities no calf tenderness noted. No pitting edema noted. . Genitourinary/Rectal deferred Skin normal skin integrity. Neurological cranial nerves II-XII intact. Normal motor strength in arms and legs. No localized numbness detected. Psychological normal affect, patient is calm and appropriate Assessment/Plan: I have discussed the above with the patient. The patient is relatively comfortable at present. I have offered laparoscopic cholecystectomy, possible cholangiograms, to be done Friday. patient wants to postpone until later in the week due to job constraints. She feels relatively comfortable at present. I have counseled the patient as to the risks of the procedure, including but not limited to: infection, bleeding, injury to any blood vessels/nerves, scar tissue, injury to any intrabdominal organs, injury to kidney/ureters, injury to bowel/bladder, injury to the common bile duct/biliary tree, bile leakage, intraabdominal abscess/bleeding, hernias at incisional sites, wound infections, possible open procedure, complications of anesthesia, postoperative pneumonia/cardiac problems/blood clots etc. the patient understands. Will schedule for later next week as per patient's wishes. Will discharge on antibiotics and pain medications I have answered all questions to the patient?s satisfaction and the patient has no further questions.
--- NOTE | 2018-05-29 07:28 | PCM.DC.GS ---
Discharge Diet: - - low fat diet drink plenty of fluids Discharge Activity: Return to Normal Activity, - - avoid driving and taking narcotics Call your doctor if you observe: Fever of 101 or Higher, Uncontrolled pain Additional Instructions: Pain medication regimen: take acetaminophen 650 mg, then in three hours take 600 mg ibuprofen, then in 3 hours take acetaminophen 650 mg, and so on take narcotics for breakthrough pain Allergies/Adverse Reactions: Allergies No Known Allergies Allergy (Verified 05/28/18 19:44) Medications to take at Discharge bupropion HCl SR 150 mg tablet,12 hr sustained-release 150 mg PO QDAY 10/03/17 Amoxicillin/Potassium Clav [Augmentin 875-125 Tablet] 1 ea PO BID 7 Days #14 tab 05/29/18 Aspirin E.C. [Ecotrin] 81 mg PO DAILY@0800 05/29/18 Cholecalciferol (Vitamin D3) [Vitamin D3] 2,000 unit PO DAILY 05/29/18 Oxycodone [Oxyir] 5 mg PO Q12H PRN PRN 5 Days #10 tab 05/29/18 The following prescriptions were given: Oxycodone [Oxyir] 5 mg PO Q12H PRN PRN 5 Days #10 tab PRN Reason: Mod-Severe Pain (4-02/11) Amoxicillin/Potassium Clav [Augmentin 875-125 Tablet] 1 ea PO BID 7 Days #14 tab Primary Care Physician: Emir Nava DO [Primary Care Provider] - Test Results: Test results from this visit will be discussed in further detail at your follow-up appointment, if applicable. Please Follow Up With: Trinh Cesar MD - call When: Surgery scheduled on Jun 03, 2018, go to registration desk at 8:30
--- NOTE | 2018-05-29 07:32 | DCINST_ITS ---
Discharge Diet: - - low fat diet drink plenty of fluids Discharge Activity: Return to Normal Activity, - - avoid driving and taking narcotics Call your doctor if you observe: Fever of 101 or Higher, Uncontrolled pain Additional Instructions: Pain medication regimen: take acetaminophen 650 mg, then in three hours take 600 mg ibuprofen, then in 3 hours take acetaminophen 650 mg, and so on take narcotics for breakthrough pain Allergies/Adverse Reactions: Allergies No Known Allergies Allergy (Verified 05/28/18 19:44) Medications to take at Discharge bupropion HCl SR 150 mg tablet,12 hr sustained-release 150 mg PO QDAY 10/03/17 Amoxicillin/Potassium Clav [Augmentin 875-125 Tablet] 1 ea PO BID 7 Days #14 tab 05/29/18 Aspirin E.C. [Ecotrin] 81 mg PO DAILY@0800 05/29/18 Cholecalciferol (Vitamin D3) [Vitamin D3] 2,000 unit PO DAILY 05/29/18 Oxycodone [Oxyir] 5 mg PO Q12H PRN PRN 5 Days #10 tab 05/29/18 The following prescriptions were given: Oxycodone [Oxyir] 5 mg PO Q12H PRN PRN 5 Days #10 tab PRN Reason: Mod-Severe Pain (4-02/11) Amoxicillin/Potassium Clav [Augmentin 875-125 Tablet] 1 ea PO BID 7 Days #14 tab Primary Care Physician: Emir Nava DO [Primary Care Provider] - Test Results: Test results from this visit will be discussed in further detail at your follow- up appointment, if applicable. Please Follow Up With: Trinh Cesar MD - call When: Surgery scheduled on Jun 03, 2018, go to registration desk at 8:30
[2018-05-29 08:23] VITALS: BP 145/88; PULSE 74; RESP 18; TEMP 36.8; O2SAT 99
== END 2018-05-29 08:46 | disposition home or self-care (01) ==
LOC: ED 20:15 → MS3 05-29 08:14
PROVIDERS: Anesthesiology; Admitting Provider Surgery; Emergency Provider Emergency Medicine; Family Provider Student in an Organized Health Care Education/Training Program; PCP Student in an Organized Health Care Education/Training Program; Referring Provider Surgery; Visit Provider Surgery
DX: K80.00 Calculus of gallbladder with acute cholecystitis without obstruction (principal); Z79.82 Long term (current) use of aspirin
CPT/HCPCS: 36415; 74177; 76705; 80048; 80053; 81001; 81025; 83690; 85025; 93005; 96361; 96365; 96375; 99218; 99282; J7030; J7120; Q9967; A4216; G0378; J2405

== ENCOUNTER 2018-06-03 08:24 | Day surgery (SDC) | payer OTHER, SELFPAY ==
[2018-05-29 00:02] VITALS: BMI 22.5
--- NOTE | 2018-06-03 08:34 | EKG12_ITS ---
Test Reason : PRE OP Blood Pressure : / mmHG Vent. Rate : 065 BPM Atrial Rate : 065 BPM P-R Int : 104 ms QRS Dur : 092 ms QT Int : 422 ms P-R-T Axes : 013 062 068 degrees QTc Int : 438 ms Sinus rhythm with short [place] Otherwise normal ECG When compared with ECG of 29-MAY-2018 04:55, QT has shortened Confirmed by ÁLVARO SPRINGER, SCOTT ([id number]), video news editor RUDY FELIPE ([id number]) on 06/05/2018 3:49:25 PM Referred By: Trinh Cesar Confirmed By:SCOTT REA MD
[2018-06-03 08:46] VITALS: BP 120/89; PULSE 77; RESP 16; TEMP 37.3; O2SAT 100; BMI 22.7
[2018-06-03 08:48] LABS: Internal QC Validated? YES +Cl - CLEAR BKGD; Pregnancy, Urine Negative Negative
--- NOTE | 2018-06-03 09:49 | PCM.HP.BLA ---
History and Physical Date of Admission: 06/03/18 Chief Complaint: abdominal pain History of Present Illness: Otherwise healthy 48 y/o WF presents cholelithiasis last week. Here for laparoscopic cholecystectomy, possible cholangiograms PAST MEDICAL HISTORY ? Chronic headaches ? ? Routine gynecological examination ? ? sees Dr. Morris ? PAST SURGICAL HISTORY ? ANKLE ARTHROSCOPY/SURGERY ? 04/2013 ? left ankle fracture repair with plates/screws ? FNA WITH IMAGING ? 04/13/14 ? U/S FNA bilateral thyroid nodules ? HEART CATHETERIZATION ? 05/2017 ? TONSILLECTOMY HX Medications: Cholecalciferol, Vitamin D3, (VITAMIN D-3) 2,000 unit cap Take by mouth. buPROPion (WELLBUTRIN) 75 mg tablet Take 1 tablet by mouth once daily. aspirin, enteric coated (ASPIRIN, ENTERIC COATED) 81 mg EC tablet Take 81 mg by mouth once daily. Allergies: Has no known drug allergies Social history: TOB use denies Review of Systems: General - denies fevers Cardiovascular denies chest pain, denies history of heart attack, Pulmonary denies shortness of breath, denies coughing up blood Gastrointestinal as per HPI, denies blood in stools Neurological denies numbness/weakness of extremities, denies seizures denies history of stroke Genitourinary denies burning with urination, denies blood in urine Hematological denies spontaneous/prolonged bleeding Skin denies open non healing wounds Musculoskeletal denies arthritis Endocrine denies diabetes Psychological no mood changes Physical examination: Vital signs Temp 97.7F BP 116/72 RR 16 HR 68 General WD/WN WF in no apparent distress, alert and oriented, not septic appearing HEENT Normocephalic. EOM intact with sclera clear and no icterus noted. Neck is supple with no jugular venous distention noted. Trachea is midline. Lungs clear to auscultation. normal breath sounds No rales/rhonchi/wheezing noted. No labored breathing noted, such as retractions. No cough heard. Heart normal S1 and S2 auscultated. No rubs/clicks/murmurs noted. Normal size and location by auscultation. Abdomen soft but tender in right upper quadrant, no peritoneal signs noted. Normal bowel sounds Extremities no calf tenderness noted. No pitting edema noted. . Genitourinary/Rectal deferred Skin normal skin integrity. Neurological cranial nerves II-XII intact. Normal motor strength in arms and legs. No localized numbness detected. Psychological normal affect, patient is calm and appropriate Assessment/Plan: I have discussed the above with the patient. I have offered laparoscopic cholecystectomy, possible cholangiograms, I have counseled the patient as to the risks of the procedure, including but not limited to: infection, bleeding, injury to any blood vessels/nerves, scar tissue, injury to any intrabdominal organs, injury to kidney/ureters, injury to bowel/bladder, injury to the common bile duct/biliary tree, bile leakage, intraabdominal abscess/bleeding, hernias at incisional sites, wound infections, possible open procedure, complications of anesthesia, postoperative pneumonia/cardiac problems/blood clots etc. the patient understands. I have answered all questions to the patient?s satisfaction and the patient has no further questions.
--- NOTE | 2018-06-03 10:00 | GALL_PTH ---
PATIENT: NICK MCCOLLUM LOC: [facility] [place] U#:[id number] AGE/SX: 48/F ROOM: RE06/03/[address]: Dr. Trinh Cesar MD : [id number] BED: DIS: 06/03/2018 SPEC #: [id number] RECD: 06/03/18 14:09 STATUS: PAWEL VALERIO #: [id number] FREIDA: 06/03/18 10:[address]: Trinh Cesar DEPT: SURGICAL PATHOLOGY RECD BY: Ivan Mcbride ENTERED: 06/03/18 14:09 SP TYPE: MAGALY TAYLOR DR: Dr. Emir Nava DO Tissues: Gallbladder, NOS Procedures: Surgery Specimen Level III HEADER OPERATION: Laparoscopic cholecystectomy with IOC PRE-OP DIAGNOSIS: Cholelithiasis and cholecystitis TISSUE SUBMITTED: Gallbladder MICROSCOPIC DIAGNOSIS Gallbladder, cholecystectomy: Chronic cholecystitis. Cholelithiasis. CE:ivelisse 06/04/18 MICROSCOPIC DESCRIPTION Slides are reviewed. GROSS DESCRIPTION Received is one container labeled with the patient's name and designated gallbladder. The specimen consists of a previously opened gallbladder measuring 5 x 4 x 2 cm. The specimen container and open gallbladder lumen contains multiple yellow, chalky calculi and fragments of calculi ranging in size from <0.1 to 07 cm in greatest dimension. The gallbladder mucosa is bile-stained and free of mass lesions. The gallbladder wall averages 0.2 cm in thickness. Ticket Writer sections of the gallbladder and the cystic duct are submitted in one cassette. / AM:ivelisse 06/03/18 TC:3 CPT: 29462
--- NOTE | 2018-06-03 10:00 | RAD_ITS ---
STUDY: INTRAOPERATIVE CHOLANGIOGRAM. REASON FOR EXAM: Female, 48 years old. Laparoscopic cholecystectomy. FLUOROSCOPY TIME (if supplied): (3.5 seconds) minutes/seconds TECHNIQUE: Intraoperative cholangiogram was performed by the surgeon. COMPARISON: None. FINDINGS: The intrahepatic bile ducts are unremarkable. The common bile duct is not dilated. No intraluminal filling defect is seen. There is free flow of contrast into the duodenum. RAD/Cholangiogram/ O R,Initial IMPRESSION: Unremarkable intraoperative cholangiogram. Electronically Signed: Piotr Rendon MD at 14:07 EST , Service support ,
--- NOTE | 2018-06-03 10:53 | PCM.IMDPSTOP ---
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
--- NOTE | 2018-06-03 10:55 | PCM.DC.GB ---
Discharge Diet: No Restrictions - avoid carbonated beverages for a couple of days Discharge Activity: Return to Normal Activity, May not drive while taking narcotic pain medications. Lifting Restrictions: no lifting greater than 20 pounds for two weeks Call your doctor if your incision/area has: Continuous Slow Oozing, Foul Smelling Discharge Call your doctor if you observe: Fever of 101 or Higher Additional Dressing/Incision Instructions:: Leave dressings in place. May get wet in shower. Do not soak - no tub baths/swimming Additional Instructions: Recommended pain medications regimen: take 600 mg of ibuprofen, then in 3 hours take 650 mg acetaminophen, then in 3 hours take 600 mg ibuprofen, then in three hours take 650 mg acetaminophen, and so on for 2-3 days can take narcotics pain medications for breakthrough pain and at night to help you sleep Allergies/Adverse Reactions: Allergies No Known Allergies Allergy (Verified 06/01/18 11:36) Medications to take at Discharge bupropion HCl SR 150 mg tablet,12 hr sustained-release 150 mg PO QDAY 10/03/17 Amoxicillin/Potassium Clav [Augmentin 875-125 Tablet] 1 ea PO BID 7 Days #14 tab 05/29/18 Aspirin E.C. [Ecotrin] 81 mg PO DAILY@0800 05/29/18 Cholecalciferol (Vitamin D3) [Vitamin D3] 2,000 unit PO DAILY 05/29/18 Oxycodone [Oxyir] 5 mg PO Q8H PRN PRN 5 Days #15 tab 06/03/18 The following prescriptions were given: Oxycodone [Oxyir] 5 mg PO Q8H PRN PRN 5 Days #15 tab PRN Reason: Mod-Severe Pain (-02/11) Primary Care Physician: Emir Nava DO [Primary Care Provider] - Test Results: Test results from this visit will be discussed in further detail at your follow-up appointment, if applicable. Please Follow Up With: Trinh Cesar MD - call When: to be see in 10-14 days, please call for date and time, thank you
--- NOTE | 2018-06-03 10:58 | DCINST_ITS ---
Discharge Diet: No Restrictions - avoid carbonated beverages for a couple of days Discharge Activity: Return to Normal Activity, May not drive while taking narcotic pain medications. Lifting Restrictions: no lifting greater than 20 pounds for two weeks Call your doctor if your incision/area has: Continuous Slow Oozing, Foul Smelling Discharge Call your doctor if you observe: Fever of 101 or Higher Additional Dressing/Incision Instructions:: Leave dressings in place. May get wet in shower. Do not soak - no tub baths/swimming Additional Instructions: Recommended pain medications regimen: take 600 mg of ibuprofen, then in 3 hours take 650 mg acetaminophen, then in 3 hours take 600 mg ibuprofen, then in three hours take 650 mg acetaminophen, and so on for 2-3 days can take narcotics pain medications for breakthrough pain and at night to help you sleep Allergies/Adverse Reactions: Allergies No Known Allergies Allergy (Verified 06/01/18 11:36) Medications to take at Discharge bupropion HCl SR 150 mg tablet,12 hr sustained-release 150 mg PO QDAY 10/03/17 Amoxicillin/Potassium Clav [Augmentin 875-125 Tablet] 1 ea PO BID 7 Days #14 tab 05/29/18 Aspirin E.C. [Ecotrin] 81 mg PO DAILY@0800 05/29/18 Cholecalciferol (Vitamin D3) [Vitamin D3] 2,000 unit PO DAILY 05/29/18 Oxycodone [Oxyir] 5 mg PO Q8H PRN PRN 5 Days #15 tab 06/03/18 The following prescriptions were given: Oxycodone [Oxyir] 5 mg PO Q8H PRN PRN 5 Days #15 tab PRN Reason: Mod-Severe Pain (-02/11) Primary Care Physician: Emir Nava DO [Primary Care Provider] - Test Results: Test results from this visit will be discussed in further detail at your follow- up appointment, if applicable. Please Follow Up With: Trinh Cesar MD - call When: to be see in 10-14 days, please call for date and time, thank you
--- NOTE | 2018-06-03 12:04 | PCM.OPRPT ---
Report of Operation Date of Procedure: 06/03/18 Pre-Operative Diagnosis: cholelithiasis, cholecystitis Post-Operative Diagnosis: same Surgery/Procedure Performed:: laparoscopic cholecystectomy with cholangiograms Description of Surgical Findings:: intraoperative cholangiograms - normal, good flow into duodenum, chronic cholecystitis commercial credit analyst: NEW Randhawa Type of Anesthesia:: General Anesthesiologist: Praneeth Phillips Specimen's removed: gallbladder and contents Estimated Blood Loss (mL): < 5 ml Fluids Replaced: 1500 ml RL Description of Procedure: After informed consent was given, the patient was brought to the Operating Room. Appropriate time out protocol was followed. She was then placed in the supine position. The patient was then placed under general endotracheal anesthesia. The abdomen was then prepped with a sterile surgical skin preparation and sterile surgical drapes were placed. The infraumbilical skin fold was grasped with penetrating clamps and the skin and subcutaneous tissues were infiltrated with 0.5% marcaine with epinephrine. A skin incision was then made with a 15 blade scalpel. The anterior abdominal wall was elevated and a Veress needle was carefully inserted into the intraabdominal cavity. It was checked to be in the proper position with a normal saline drop test. A CO2 pneumoperitoneum was then created. Once this was achieved, then the Veress needle was removed and an 11mm trocar was placed in its stead. A 10mm laparoscope was then inserted into the trocar and careful attention was directed to the intraabdominal contents. There was no evidence of injury to any intraabdominal organs from insertion of the Veress needle or the trocar. Under direct visualization, a 5mm subxiphoid trocar and two lateral 5mm right subcostal trocars were placed. The skin and subcutaneous tissues at these sites were infiltrated with 0.5% marcaine with epinephrine prior to placement of these trocars. Attention was then directed to the right upper quadrant of the abdomen. There were some omental adhesions to the free surface of the gallbladder and these were taken down by blunt dissection. Graspers were placed in the lateral trocars to grasp the distal aspect of the gallbladder and direct it cephalad and to grasp the gallbladder at Castaneda?s pouch and direct it laterally. Dissection then began on the proximal gallbladder continuing down to the area of the triangle of Calot to bluntly dissect out the cystic duct. The neck of the gallbladder was identified and blunt dissection continued to dissect out a segment of the cystic duct. A clip was then placed on the neck of the gallbladder. A small ductotomy was then made. A Ranfac catheter was brought in through a separate skin incision and placed into the cystic duct. An intraoperative cholangiogram was performed under fluoroscopy. The xray revealed no lesions in the common bile duct, arborization of the biliary tree, and good flow into the duodenum. The Ranfac catheter was then removed and two clips were placed proximal to the ductotomy and the cystic duct was then transected. The cystic artery was visualized and bluntly isolated and then two clips were placed proximally and one clip distally and then it was transected between the proximal and distal clips. The gallbladder was then from the liver bed using electrocautery. It was then placed in an Endobag and thus able to be brought out of the umbilical port. It was then forwarded to pathology for analysis. The liver bed was carefully examined. There was no evidence of bile leakage or bleeding. The cystic duct stump and cystic artery stump had their clips intact and there was no evidence of bile leakage or bleeding. The remainder of the abdomen was grossly normal. The CO2 was released and all trocars removed intact. The periumbilical fascia was approximated with a [id number] 0 vicryl suture. All skin incision were closed with 4-0 monocryl in a subdermal fashion. Cavilol and Steristrips were used to reinforce the skin closure. Sterile dressings were applied to all wounds. The patient was extubated and brought to the Recovery Room in stable condition. - Complications none noted - Admit VTE Documentation VTE Present on Admission: Yes VTE Mechan Device Prophylaxis: SCD's
[2018-06-03] MEDS: Bupiv/Epi 0.25% 30 ML Vial (12:08)
[2018-06-03 12:25] VITALS: BP 120/89; BP 142/84; PULSE 59; RESP 16; TEMP 36.1; O2SAT 100
[2018-06-03 12:30] VITALS: BP 120/89; BP 134/80; PULSE 53; RESP 16; O2SAT 97
[2018-06-03 12:45] VITALS: BP 120/89; BP 137/76; PULSE 50; RESP 16; O2SAT 99
[2018-06-03 13:00] VITALS: BP 120/89; BP 141/90; PULSE 60; RESP 16; TEMP 36.9; O2SAT 100
[2018-06-03] MEDS: oxyCODONE 5 MG Tablet PO (13:12)
[2018-06-03] MEDS: Acetaminophen 325 MG Tablet 650 MG PO (14:49)
[2018-06-03 15:12] VITALS: BP 120/89; BP 145/66; PULSE 55; RESP 16; TEMP 36.8; O2SAT 99
== END 2018-06-03 15:15 | disposition home or self-care (01) ==
LOC: SDC 08:24 → AC 08:26
PROVIDERS: Anesthesiology; Family Provider Student in an Organized Health Care Education/Training Program; PCP Student in an Organized Health Care Education/Training Program; Referring Provider Surgery; Visit Provider Surgery
PROC: (CPT 47610; principal; 2018-06-03 09:40)
DX: K80.10 Calculus of gallbladder with chronic cholecystitis without obstruction (principal); F32.9 Major depressive disorder, single episode, unspecified; F41.9 Anxiety disorder, unspecified; I25.2 Old myocardial infarction; Z79.82 Long term (current) use of aspirin; Z79.899 Other long term (current) drug therapy
CPT/HCPCS: 47563; 74300; 76000; 81025; 88304; 93005; J7120; J1610; J2405